=== PATIENT | male | born 1950 | race Hispanic/Latino ===

== ENCOUNTER 2019-08-09 16:16 | Inpatient (IN) | payer OTHER ==
[~2019-08-09] VITALS: Ht 152.4 cm; Wt 74.7 kg
[2019-08-09 16:58] LABS: BASOPHILS % (AUTO) 0.4 % (0.0-5.0); EOSINOPHILS % (AUTO) 2.7 % (0.0-8.0); HEMATOCRIT 27.1 % (42-54); LYMPHOCYTES % (AUTO) 22.4 % (21.0-51.0); MEAN CORPUSCULAR HEMOGLOBIN 30.5 pg (27.0-33.0); MEAN CORPUSCULAR HGB CONC 32.1 g/dL (32.0-36.0); MEAN CORPUSCULAR VOLUME 95.1 fL (79-99); MONOCYTES % (AUTO) 6.5 % (3.0-13.0); NEUTROPHILS % (AUTO) 67.7 % (40.0-77.0); PLATELET COUNT (AUTO) 154 K/uL (130-400); RED BLOOD CELL COUNT(AUTO) 2.85 MIL/uL (4.50-6.20); RED CELL DISTRIBUTION WIDTH 14.3 % (11.0-15.5); WHITE BLOOD COUNT (AUTO) 7.1 K/uL (4.8-10.8)
[2019-08-09 17:18] LABS: BILIRUBIN,TOTAL 0.3 mg/dL (0.2-1.0); POTASSIUM 5.8 mmol/L (3.5-5.1); TOTAL PROTEIN, SERUM 6.3 g/dL (6.0-8.3)
[2019-08-09 17:23] LABS: CREATININE 8.6 mg/dL (0.5-1.5)
[2019-08-09] MEDS ORDERED: HYDRALAZINE HCL 20 MG/ML VIAL ONE (17:44)
[2019-08-09] MEDS ORDERED: SODIUM POLYSTYRENE SULFONATE 15 GM/60 ML ML ONE (17:50)
[2019-08-09] MEDS ORDERED: SODIUM BICARB 50MEQ 50ML VIAL ONE (17:50)
[2019-08-09] MEDS ORDERED: INSULIN HUMULIN R 100 UNIT/ML 3ML ONE (17:51)
[2019-08-09] MEDS ORDERED: DEXTROSE 50%-WATER 50 ML DISP.SYRIN IV ONE (17:51)
[2019-08-09] MEDS ORDERED: CALCIUM GLUCONATE 1 GM/10 ML VIAL IV ONE (17:53)
[2019-08-09] MEDS ORDERED: SODIUM CHLORIDE 0.9% 100 ML IV ONE (17:58)
[2019-08-09] MEDS ORDERED: ALBUTEROL SULFATE 0.083% 2.5 MG/3 ML INH IH ONE (18:02)
[2019-08-09] MEDS ORDERED: ONDANSETRON ODT 4 MG TAB PO PRN (18:45)
[2019-08-09] MEDS ORDERED: ACETAMINOPHEN 325 MG TAB PO PRN (18:45)
[2019-08-09 19:46] LABS: INR 0.94 (0.85-1.15); PARTIAL THROMBOPLASTIN TIME 27.4 SEC (26.3-35.5); PROTHROMBIN TIME 10.2 SEC (9.6-11.6)
[2019-08-09 23:15] VITALS: BP 189/84
[2019-08-09] MEDS: SODIUM BICARBONATE 650 MG TAB PO SCH (23:15)
--- NOTE | 2019-08-09 23:15 | NUR ---
ADMISSION PT TRANSFERRED FROM ER INTO ROOM 321, AWAKE, ALERT AND VERBALLY RESPONSIVE. NO C/O PAIN OR DISCOMFORT AT THIS TIME. PATIENT ORIENTED TO ROOM, CALL CUNNINGHAM WITHIN REACH, BED IN LOWEST POSITION. Addendum: 08/10/19 at 0116 by PAUL ABEL RN Amended: Links added.
[2019-08-10 00:08] VITALS: BP 155/89
[2019-08-10] MEDS ORDERED: AMLO2.5T4 PO (02:13)
[2019-08-10] MEDS ORDERED: TAMS-1 PO (02:13)
[2019-08-10] MEDS ORDERED: ATOR10 PO (02:13)
[2019-08-10 04:08] VITALS: BP 172/73
[2019-08-10] MEDS ORDERED: INSU100I24 SQ (05:10)
--- NOTE | 2019-08-10 05:23 | NUR ---
ELEVATED BP PATIENT BLOOD PRESSURE THIS MORNING 172/73, HR 73, NO C/O PAIN OR DISCOMFORT AT THIS TIME. SPOKE TO DARLINE MOYA MADE AWARE OF PATIENT CURRENT BLOOD PRESSURE STATED, "PATIENT CAME INTO HOSPITAL WITH BP LIKE THAT I'M FINE WITH IT THAT HIGH, IF BECOMES HIGHER THAN SBP 190'S WE'LL WORRY ABOUT IT". NO NEW ORDERS GIVEN AT THIS TIME, WILL CONTINUE TO MONITOR PATIENT BP.
[2019-08-10 06:16] LABS: HEMATOCRIT 26.1 % (42-54); MEAN CORPUSCULAR HEMOGLOBIN 30.6 pg (27.0-33.0); MEAN CORPUSCULAR HGB CONC 32.6 g/dL (32.0-36.0); MEAN CORPUSCULAR VOLUME 93.9 fL (79-99); RED BLOOD CELL COUNT(AUTO) 2.78 MIL/uL (4.50-6.20); RED CELL DISTRIBUTION WIDTH 14.2 % (11.0-15.5); WHITE BLOOD COUNT (AUTO) 8.4 K/uL (4.8-10.8)
[2019-08-10 06:38] LABS: ALBUMIN 2.8 g/dL (3.5-5.0); BILIRUBIN,TOTAL 0.3 mg/dL (0.2-1.0); MAGNESIUM 2.6 mg/dL (1.80-2.40); PHOSPHORUS 6.5 mg/dL (2.5-4.9); POTASSIUM 4.1 mmol/L (3.5-5.1); TOTAL PROTEIN, SERUM 5.8 g/dL (6.0-8.3)
[2019-08-10 06:41] LABS: CREATININE 8.3 mg/dL (0.5-1.5)
[2019-08-10 08:00] VITALS: BP 176/83
[2019-08-10] MEDS: AMLODIPINE BESYLATE 2.5 MG TAB PO SCH (08:38)
[2019-08-10] MEDS: SODIUM BICARBONATE 650 MG TAB PO SCH ×3 (08:38→21:31)
[2019-08-10] MEDS: TAMSULOSIN HCL 0.4 MG CAP.ER.24H PO SCH (08:38)
[2019-08-10 09:57] LABS: APPEARANCE,URINE Clear (CLEAR); BILIRUBIN,URINE Negative (NEGATIVE); COLOR,URINE Yellow (YELLOW); GLUCOSE, URINE (UA) TRACE mg/dL (NEGATIVE); KETONES,URINE Negative (NEGATIVE); LEUKOCYTE ESTERASE ,URINE Negative (NEGATIVE); NITRATE,URINE Negative (NEGATIVE); OCCULT BLOOD,URINE Trace (NEGATIVE); PROTEIN,URINE 300 mg/dL (NEGATIVE); UROBILINOGEN,URINE 0.2 mg/dL (0.2-1.0)
[2019-08-10 10:13] LABS: BACTERIA,URINE Rare /HPF (None Seen); RBC,URINE 0-1 /HPF (0-1); SQUAMOUS EPITHELIAL CELL,UR Rare /HPF (0-2); WBC,URINE 0-1 /HPF (0-1)
[2019-08-10 11:49] VITALS: BP 195/80
--- NOTE | 2019-08-10 12:43 | NUR ---
CHART REVIEWED, ACF UPLOADED, TXT TO JEWELRY DESIGNER RE: RENAL CONSULT MISSING CONSULT FOR PUENTE Addendum: 08/10/19 at 1243 by GEN MCGOVERN RN CM Amended: Links added.
--- NOTE | 2019-08-10 12:46 | NUR ---
CHART REVIEWED, NOTED NEPHROLOGY CONSULT: [facility] WILL AWAIT NOTES / CM TO ASSIST IF HD STARTED
[2019-08-10 14:20] LABS: CREATININE,URINE RANDOM 55 mg/dL (30-135); POTASSIUM,URINE RANDOM 19 mmol/L (25-125); SODIUM,URINE RANDOM 97 mmol/l (40-220)
--- NOTE | 2019-08-10 14:41 | NUR ---
CALLED TO DR PUENTE OFFICE AND SPOKE WITH JONO ANSWERING SERVICE REGARDING F/U ON CONSULT .. PENDING CALL BACK FROM DR PUENTE
--- NOTE | 2019-08-10 15:43 | NUR ---
2ND PAGE OUT TO DR PUENTE . CALLED TO OFFICE AND SPOKE WITH MANNY REGARDING MD PLACED PATIENT NPO BUT NO PROVCEDURES ORDERED YET AND FOLLOWING UP .PENDING CALL BACK FROM DR PUENTE
[2019-08-10 16:00] VITALS: BP 189/88
--- NOTE | 2019-08-10 16:46 | NUR ---
CALL TO DR. HOLBROOK'S OFFICE FOR CORRECT CONTACT NUMBER (NUMBERS ON FACE SHEET NOT ACCURATE). CALL TO DAUGHTER SERENA, STATES PT AND SPOUSE LIVE WITH HER FAMILY AND HER BROTHERS FAMILY OFF AND ON. NUMBERS AND ADDRESSES UPDATED/FAXED TO REGISTRATION STATES USED TO BE INDEPENDENT WALKING, NOW NEEDS CANE AT ALL TIMES- VASILIY BELTRÁN PROVIDED ASSISTANCE WITH ADLS, NO STAIRS AT HOME, BUT DOES HAVE TROUBLE WITH THEM. STATES [facility] OR PTS SON OR PTS DAUGHTER WILL PROVIDE TRANSPORT IF NEEDED. JOE HAS HAD HD ON A TEMPORARY BASIS IN THE PAST, NUBIA HAS BEEN VIGILANT ABOUT DIET/MEDS/FLUIDS, BUT NOW HAVE BEEN TOLD HE NEEDS HD TO RE START. DCP IS HOME, WILL AWAIT MD RECOMMENDATIONS. ANTICIPATE HD SET UP ON THIS ADMIT Addendum: 08/10/19 at 1650 by GEN MCGOVERN RN CM Amended: Links added.
[2019-08-10] MEDS ORDERED: HYDRALAZINE HCL 20 MG/ML VIAL IV ONE (18:30)
[2019-08-10 19:00] VITALS: BP 141/64
[2019-08-10] MEDS: ATORVASTATIN CALCIUM 10 MG TABLET PO SCH (21:31)
[2019-08-10] MEDS ORDERED: ZOLPIDEM TARTRATE 5 MG TAB PO PRN (21:45)
[2019-08-10] MEDS ORDERED: MAG HYDROX/AL HYDROX/SIMETH ES 30 ML SUSP UDCUP PO PRN (21:45)
[2019-08-10] MEDS ORDERED: MORPHINE SULFATE 2 MG/ML 1ML SYG IV PRN (21:45)
[2019-08-10] MEDS ORDERED: LACTULOSE 20 GM/30 ML UDCUP PO PRN (21:45)
[2019-08-10] MEDS ORDERED: MECLIZINE HCL 25 MG TABLET PO PRN (21:45)
[2019-08-10] MEDS ORDERED: DIPHENHYDRAMINE HCL 25 MG CAPSULE PO PRN (21:45)
[2019-08-10] MEDS ORDERED: ACETAMINOPHEN 325 MG TAB PO PRN ×2 (21:45)
[2019-08-10] MEDS ORDERED: GUAIFENESIN-DM 200/20 MG 10 ML PO PRN (21:45)
[2019-08-10] MEDS ORDERED: NITROGLYCERIN 0.4 MG SL TAB SL PRN (21:45)
[2019-08-10] MEDS ORDERED: ONDANSETRON HCL 4 MG/2 ML VIAL IV PRN (21:45)
[2019-08-10] MEDS ORDERED: DiphenhydrAMINE HCL 50 MG/ML VIAL IV PRN (21:45)
[2019-08-11] VITALS (14 sets, daily range): BP systolic 129–198; BP diastolic 52–88
[2019-08-11 05:11] LABS: BASOPHILS % (AUTO) 0.6 % (0.0-5.0); EOSINOPHILS % (AUTO) 3.8 % (0.0-8.0); LYMPHOCYTES % (AUTO) 19.4 % (21.0-51.0); MEAN CORPUSCULAR HEMOGLOBIN 30.3 pg (27.0-33.0); MEAN CORPUSCULAR HGB CONC 31.9 g/dL (32.0-36.0); MEAN CORPUSCULAR VOLUME 94.9 fL (79-99); MONOCYTES % (AUTO) 6.1 % (3.0-13.0); NEUTROPHILS % (AUTO) 69.9 % (40.0-77.0); PLATELET COUNT (AUTO) 155 K/uL (130-400); RED BLOOD CELL COUNT(AUTO) 2.74 MIL/uL (4.50-6.20); RED CELL DISTRIBUTION WIDTH 14.6 % (11.0-15.5); WHITE BLOOD COUNT (AUTO) 6.3 K/uL (4.8-10.8)
[2019-08-11 05:18] LABS: HEMOGLOBIN A1C 7.1 % (4.0-6.0)
[2019-08-11 05:36] LABS: ALBUMIN 2.7 g/dL (3.5-5.0); BILIRUBIN,TOTAL 0.2 mg/dL (0.2-1.0); PHOSPHORUS 6.4 mg/dL (2.5-4.9); POTASSIUM 4.3 mmol/L (3.5-5.1); TOTAL PROTEIN, SERUM 5.8 g/dL (6.0-8.3)
[2019-08-11 05:39] LABS: B-TYPE NATRIURETIC PEPTIDE 1090 pg/mL (0-100)
[2019-08-11 05:40] LABS: CREATININE 8.4 mg/dL (0.5-1.5)
[2019-08-11 05:48] LABS: % IRON SATURATION 29.4 % (30-44)
[2019-08-11] MEDS: AMLODIPINE BESYLATE 2.5 MG TAB PO SCH (09:00)
[2019-08-11] MEDS: SODIUM BICARBONATE 650 MG TAB PO SCH ×3 (09:00→20:26)
[2019-08-11] MEDS: TAMSULOSIN HCL 0.4 MG CAP.ER.24H PO SCH (09:00)
[2019-08-11] MEDS: ENOXAPARIN SODIUM 30 MG/0.3 ML SQ SCH (09:00)
[2019-08-11] MEDS: FUROSEMIDE 10 MG/ML 2ML VIAL IV SCH ×2 (09:00→20:26)
[2019-08-11] MEDS: HYDRALAZINE HCL 20 MG/ML VIAL IV PRN ×2 (11:53→20:26)
[2019-08-11] MEDS ORDERED: LIDOCAINE HCL 1% MDV 50ML VIAL ONE (12:06)
--- NOTE | 2019-08-11 13:49 | NUR ---
CM Note: [facility] pending approval and chair time WENDIE signed by pt for [facility], filed in chart. CM faxed order, clinicals to [facility] Intake, confirmation received. Pending to fax lab result and dialysis #1,2,3. Will fax as soon as available. Pt pending approval and chair time. Primary nurse aware. CM to cont to follow up.
--- NOTE | 2019-08-11 15:11 | NUR ---
1011 patient signed Amharic IM Letter. I faxed IM Letter to [phone] and placed in chart under consent tab.
--- NOTE | 2019-08-11 16:48 | NUR ---
BRIDGETT CARABALLO CALLED SAID NO OPENINGS IN [place]. CLOSEST CLINIC WOULD BE [facility]. DR. PUENTE DOES NOT APPEAR ON EITHER OF THOSE CLINICS. NEED TO ASK HIM IF OKAY TO CHANGE ACCEPTING MD. Addendum: 08/11/19 at 1649 by CJ BLUNT RN CM Amended: Links added.
--- NOTE | 2019-08-11 18:20 | NUR ---
HD OUTPATIENT PLACEMENT DR LIN IS COMMUNICATIONS COORDINATOR TODAY. I INFORMED HIM THAT THERE IS NO CHAIR AVAILABLE IN [facility], PATIENT COULD GO TO [place] OR [facility]. DR LIN STATED THAT HE WANTS PROFESSOR OF FINANCE TO CALL HIM TOMORROW BECAUSE DR PUENTE'S PARTNER, MARITA MICHELLE, MAY BE ABLE TO TAKE THE PATIENT IN [place]. HD STILL PENDING TO SET UP.
[2019-08-11] MEDS: ATORVASTATIN CALCIUM 10 MG TABLET PO SCH (20:26)
--- NOTE | 2019-08-11 20:26 | NUR ---
B/P B/P 182/66, ASYMPTOMATIC , NO SOB, NO C/O PAIN AT THIS TIME, HYDRALAZINE 10 MG IVP GIVEN SLOWLY
--- NOTE | 2019-08-11 21:20 | NUR ---
MED EFFECT B/P 133/65, NAD, CALL C[place]AM AT REACH
[2019-08-12 03:29] VITALS: BP 141/78
[2019-08-12 05:45] LABS: HEMATOCRIT 26.6 % (42-54); MEAN CORPUSCULAR HEMOGLOBIN 30.5 pg (27.0-33.0); MEAN CORPUSCULAR HGB CONC 32.7 g/dL (32.0-36.0); MEAN CORPUSCULAR VOLUME 93.3 fL (79-99); RED BLOOD CELL COUNT(AUTO) 2.85 MIL/uL (4.50-6.20); RED CELL DISTRIBUTION WIDTH 14.1 % (11.0-15.5); WHITE BLOOD COUNT (AUTO) 7.1 K/uL (4.8-10.8)
[2019-08-12 06:06] LABS: CREATININE 6.4 mg/dL (0.5-1.5); POTASSIUM 3.8 mmol/L (3.5-5.1)
[2019-08-12 07:44] VITALS: BP 155/87
[2019-08-12] MEDS: AMLODIPINE BESYLATE 2.5 MG TAB PO SCH (08:32)
[2019-08-12] MEDS: TAMSULOSIN HCL 0.4 MG CAP.ER.24H PO SCH (08:32)
[2019-08-12] MEDS: SODIUM BICARBONATE 650 MG TAB PO SCH ×3 (08:32→21:41)
[2019-08-12] MEDS: FUROSEMIDE 10 MG/ML 2ML VIAL IV SCH (08:32)
[2019-08-12] MEDS: ENOXAPARIN SODIUM 30 MG/0.3 ML SQ SCH (08:33)
--- NOTE | 2019-08-12 09:50 | NUR ---
PAGED DR PUENTE, WAITING FUNNEL COATER BACK.
[2019-08-12 11:31] VITALS: BP 165/78
--- NOTE | 2019-08-12 13:07 | NUR ---
PAGED DR PUENTE AGAIN. WAITING FISHER DIVING BACK SINCE THIS MORNING.
[2019-08-12 13:11] LABS: HEPATITIS Bs ANTIGEN SCREEN P Negative (Negative)
[2019-08-12] MEDS ORDERED: GLUCAGON 1MG KIT 1 MG ML IM PRN (13:15)
[2019-08-12] MEDS ORDERED: DEXTROSE 50%-WATER 50 ML DISP.SYRIN IV PRN (13:15)
--- NOTE | 2019-08-12 15:55 | NUR ---
DC PLAN RECEIVED ORDER TO CALL DR. PUENTE. CALLED MD GAVE UPDATE. NO ROOM IN [facility]. GOING TO BE SEEN IN [place]. PATIENT OKAY WITH CHANGE. DR. PUENTE OKAY WITH CHANGE. SAID PARTNER DR. MICHELLE CAN SEE PATIENT AT [facility]. Addendum: 08/12/19 at 1556 by CJ BLUNT RN CM Amended: Links added.
[2019-08-12 16:36] VITALS: BP 170/78
--- NOTE | 2019-08-12 16:36 | NUR ---
RD NOTIFICATION Pt admitted with Acute on Chronic Renal Failure. Pt tolerating Dialysis, 75gm CC diet order with no report of GI distress, Good PO intake at 100%. BOUBACAR provided Nutrition education via Ivorian translation. Recommend continue current diet order. RD to continue to you monitor. Please notify as additional nutrition concerns arise. Thank you. Addendum: 08/12/19 at [address] Amended: Links added.
--- NOTE | 2019-08-12 16:39 | NUR ---
NUTRITION EDUCATION BOUBACAR provided Renal Dialysis and Diabetes Nutrition education via Serbian Translation. BOUBACAR reviewed reference materials with Pt. Pt was cooperative and attentive. Pt verbalized understanding. Addendum: 08/12/19 at [address] Amended: Links added.
[2019-08-12] MEDS: INSULIN HUMULIN R 100 UNIT/ML 3ML SQ SCH ×2 (16:56→21:00)
[2019-08-12 19:14] VITALS: BP 159/74
[2019-08-12] MEDS: ATORVASTATIN CALCIUM 10 MG TABLET PO SCH (21:41)
[2019-08-12 23:10] VITALS: BP 183/51
[2019-08-13 04:00] VITALS: BP 157/60
[2019-08-13] MEDS: INSULIN HUMULIN R 100 UNIT/ML 3ML SQ SCH ×4 (06:48→20:29)
[2019-08-13 08:00] VITALS: BP 168/68
[2019-08-13] MEDS: AMLODIPINE BESYLATE 5 MG TAB PO SCH (08:37)
[2019-08-13] MEDS: SODIUM BICARBONATE 650 MG TAB PO SCH ×3 (08:37→20:30)
[2019-08-13] MEDS: TAMSULOSIN HCL 0.4 MG CAP.ER.24H PO SCH (08:37)
[2019-08-13] MEDS: ENOXAPARIN SODIUM 30 MG/0.3 ML SQ SCH (08:38)
--- NOTE | 2019-08-13 10:48 | NUR ---
DC PLAN SENT UPDATES TO [facility] INCLUDING LAST DIALYSIS TREATMENT. YESTERDAY IT WAS PLACED ON HOLD 08/11. Addendum: 08/13/19 at 1049 by CJ BLUNT RN CM Amended: Links added.
[2019-08-13 11:00] VITALS: BP 175/80
[2019-08-13] MEDS: HYDRALAZINE HCL 10 MG TABLET PO SCH ×2 (14:00→20:30)
[2019-08-13] MEDS ORDERED: LIDOCAINE HCL-MPF 1% 2ML VIAL IJ PRN (15:00)
[2019-08-13] MEDS ORDERED: ACETAMINOPHEN 325 MG TAB PO PRN (15:00)
[2019-08-13] MEDS ORDERED: HEPARIN SODIUM 5000UNIT/ML 1ML VIAL IJ PRN ×2 (15:00)
[2019-08-13] MEDS ORDERED: SODIUM CHLORIDE 0.9% 1000ML 1,000 ML IV PRN (15:00)
[2019-08-13] MEDS ORDERED: NITROGLYCERIN 0.4 MG SL TAB SL PRN (15:00)
[2019-08-13] MEDS ORDERED: 0.9% SODIUM CHLORIDE 1000 ML IV BAG IV PRN (15:00)
--- NOTE | 2019-08-13 15:44 | NUR ---
BRIDGETT NESS CALLED [facility] SAID THE CASE ASSIGNED PERSON IS OUT TODAY. SAID THEY WILL LEAVE A MESSAGE FOR A DONOR PROCESSOR TO CALL ME BACK. STILL PENDING CHAIR TIME. COVID FORM SIGNED IN CHART. Addendum: 08/13/19 at 1547 by CJ BLUNT RN CM Amended: Links added.
[2019-08-13 16:00] VITALS: BP 142/73
[2019-08-13 19:39] VITALS: BP 166/71
[2019-08-13] MEDS: ATORVASTATIN CALCIUM 10 MG TABLET PO SCH (20:30)
[2019-08-13 23:53] VITALS: BP 158/78
[2019-08-14 04:00] VITALS: BP 154/82
[2019-08-14 06:30] LABS: CREATININE 4.6 mg/dL (0.5-1.5); MAGNESIUM 1.7 mg/dL (1.80-2.40); POTASSIUM 3.5 mmol/L (3.5-5.1)
[2019-08-14] MEDS: INSULIN HUMULIN R 100 UNIT/ML 3ML SQ SCH ×3 (06:33→16:49)
[2019-08-14 08:00] VITALS: BP 166/76
[2019-08-14] MEDS: SODIUM BICARBONATE 650 MG TAB PO SCH ×3 (09:15→20:18)
[2019-08-14] MEDS: TAMSULOSIN HCL 0.4 MG CAP.ER.24H PO SCH (09:15)
[2019-08-14] MEDS: HYDRALAZINE HCL 10 MG TABLET PO SCH ×3 (09:16→20:18)
[2019-08-14] MEDS: AMLODIPINE BESYLATE 5 MG TAB PO SCH (09:16)
[2019-08-14] MEDS: ENOXAPARIN SODIUM 30 MG/0.3 ML SQ SCH (09:16)
--- NOTE | 2019-08-14 10:00 | NUR ---
cm note received call by daughter christine [phone] and updated on dialysis chair is still pending. call was made to [facility] main line and still no approval discussed process with daughter and verbalizes understanding.
[2019-08-14 11:00] VITALS: BP 170/79
[2019-08-14 16:00] VITALS: BP 145/73
[2019-08-14 20:00] VITALS: BP 139/70
[2019-08-14] MEDS: ATORVASTATIN CALCIUM 10 MG TABLET PO SCH (20:18)
--- NOTE | 2019-08-14 22:25 | NUR ---
NOTE 2205 RECEIVED CALL FROM PATIENT'S DAUGHTER. EXPRESSING CONCERNS ABOUT WHAT IS TAKING SO LONG FOR HER FATHER TO GET DISCHARGED. LISTENED TO HER CONCERNS ADDRESSED HER QUESTIONS, BUT SHE WAS NOT SATISFIED DUE TO CONFLICTING INFORMATION SHE SAYS SHE HAS BEEN RECEIVING. THE LATEST INFORMATION AVAILABLE TO ME AND IS WHAT I TOLD HER PER SHIFT REPORT (LASER SYSTEMS ENGINEER SAUL TODAY SPOKE WITH DAUGHTER ABOUT NOT HAVING SERCURED A DIALYSIS CHAIR YET. PENDING TO HEAR FROM DIALYSIS FACILITY. THAT IT WILL PROBABLY BE ON FRIDAY SINCE FRIDAY IS A HOLIDAY). DAUGHTER INQUIRED ABOUT WHAT WHEELMAN SHE COULD SPEAK TO TO IN THIS REGARDS. REFERRED DAUGHTER TO LASER SYSTEMS ENGINEER WHEELMAN. SAYS SHE WILL CALL TOMORROW AND ASK TO HER. 2224 SPOKE WITH GLASS MECHANIC REGARDING THIS PHONECALL AND DAUGHTERS CONCERNS. SAYS SHE WILL PASS IT ON TO LASER SYSTEMS ENGINEER WHEELMAN IF SHE HAS CONTACT WITH [facility]. IF NOT, THEN FOR DAUGHTER TO SPEAK TO LASER SYSTEMS ENGINEER TOMORROW AND ARRANGE IT.
[2019-08-15] VITALS: BP 139/49
[2019-08-15 04:00] VITALS: BP 146/57
[2019-08-15] MEDS: INSULIN HUMULIN R 100 UNIT/ML 3ML SQ SCH ×4 (05:53→20:52)
[2019-08-15 06:13] LABS: BASOPHILS % (AUTO) 0.5 % (0.0-5.0); HEMATOCRIT 25.6 % (42-54); LYMPHOCYTES % (AUTO) 25.5 % (21.0-51.0); MEAN CORPUSCULAR HEMOGLOBIN 30.2 pg (27.0-33.0); MEAN CORPUSCULAR HGB CONC 33.6 g/dL (32.0-36.0); MEAN CORPUSCULAR VOLUME 89.8 fL (79-99); MONOCYTES % (AUTO) 7.2 % (3.0-13.0); NEUTROPHILS % (AUTO) 62.6 % (40.0-77.0); PLATELET COUNT (AUTO) 157 K/uL (130-400); RED BLOOD CELL COUNT(AUTO) 2.85 MIL/uL (4.50-6.20); RED CELL DISTRIBUTION WIDTH 13.5 % (11.0-15.5); WHITE BLOOD COUNT (AUTO) 8.1 K/uL (4.8-10.8)
[2019-08-15 06:34] LABS: CREATININE 5.5 mg/dL (0.5-1.5); MAGNESIUM 1.7 mg/dL (1.80-2.40); POTASSIUM 3.5 mmol/L (3.5-5.1)
[2019-08-15 08:00] VITALS: BP 162/71
--- NOTE | 2019-08-15 08:36 | NUR ---
NOTE SPOKE WITH GENERAL CLAIMS AGENT SAUL REGARDING CONVERSATION WITH PATIENT'S DAUGHTER AND HER CONCERNS THAT I HAD LAST NIGHT. MADE AWARE THAT SHE ALSO WANTED TO SPEAK TO HER CLINICAL BUSINESS MANAGER.
[2019-08-15] MEDS: HYDRALAZINE HCL 10 MG TABLET PO SCH ×3 (09:16→20:52)
[2019-08-15] MEDS: TAMSULOSIN HCL 0.4 MG CAP.ER.24H PO SCH (09:16)
[2019-08-15] MEDS: SODIUM BICARBONATE 650 MG TAB PO SCH ×3 (09:16→20:52)
[2019-08-15] MEDS: AMLODIPINE BESYLATE 5 MG TAB PO SCH (09:16)
[2019-08-15] MEDS: ENOXAPARIN SODIUM 30 MG/0.3 ML SQ SCH (09:17)
[2019-08-15 11:00] VITALS: BP 146/67
[2019-08-15] MEDS ORDERED: FUROSEMIDE 10 MG/ML 4ML VIAL IV SCH (11:00)
--- NOTE | 2019-08-15 11:00 | NUR ---
cm note met with patient and also updated daughter on status on dialysis chair that it is still pending. call was made to [facility] main line [phone] and left voicemail due to office is closed and no approval yet. discussed process with daughter and with patient verbalizes understanding.
--- NOTE | 2019-08-15 13:45 | NUR ---
MD ROUNDS DR. PUENTE ROUNDED AND SPOKE TO PATIENT REGARDING DISCHARGE TODAY. PER DR. PUENTE, PATIENT WAS GIVEN A DIALYSIS CHAIR AT [facility] IN [place] SINCE FRIDAY. PATIENT TO ATTEND FRI-FRI-FRI BUT DOES NOT KNOW THE TIME THAT WAS ARRANGED. I MENTIONED TO DR. PUENTE THAT CASE MANAGEMENT HAS NOT RECEIVED CLARIFICATION OF CHAIR AVAILABILITY AT THIS TIME. DR. PUENTE STATED CASE MANAGEMENT NEEDS TO FOLLOW UP WITH DIALYSIS CENTER SOON POSSIBLE TO CLARIFY THE ORDERS THAT WERE GIVEN ON FRIDAY. I SPOKE TO ELIANE HUGHES (CM) STATED WILL CALL JUDY RUBIO RN TO DISCUSS THE CASE AND NOTIFY ME OF ANY NEW INFORMATION.
--- NOTE | 2019-08-15 14:00 | NUR ---
cm note updated by nurse that dr valdes here and asked regarding chair time, i called to [facility] main line [phone] and left 2 different messages for a callback due to office closed. spoke to troy evans cm director, and able to look up on [facility] portal , but still no approval of chair time for pt on portal. faxed clinical information and uploaded on portal. but pt is still pending last Hemodilaysis treatment. per nurse tommy plan is for dialysis friday. updated Tyesha Fox, with [facility] informed primary nurse will continue to followup tomorrow for update. verbalizes understanding. Addendum: 08/15/19 at 1924 by CJ RODRIGUEZ call also made to alternate line [facility] [phone] to followup on chairtime. however, offices closed, and did leave a message for callback.
[2019-08-15 16:00] VITALS: BP 142/60
[2019-08-15 20:00] VITALS: BP 146/52
[2019-08-15] MEDS: ATORVASTATIN CALCIUM 10 MG TABLET PO SCH (20:52)
[2019-08-16 00:08] VITALS: BP 143/62
[2019-08-16 04:08] VITALS: BP 162/69
[2019-08-16 05:32] LABS: CREATININE 6.2 mg/dL (0.5-1.5); MAGNESIUM 1.8 mg/dL (1.80-2.40); POTASSIUM 3.5 mmol/L (3.5-5.1)
[2019-08-16] MEDS: INSULIN HUMULIN R 100 UNIT/ML 3ML SQ SCH ×2 (06:31→11:19)
--- NOTE | 2019-08-16 07:00 | NUR ---
NOTE 0548 PAGED [facility] CONTRACT RECRUITER VIA ANSWERING SERVICE TO NOTIFY OF LABS TODAY SODIUM LEVEL 125 AND CHLORIDE 90. 0638 CONTACTED ANSWERING SERVICE. SAID WILL PAGE FAB ROGERS AGAIN. 0700 REPORT GIVEN TO TIANA LOPEZ ON PENDING CALLBACK TO REPORT LAB RESULTS.
[2019-08-16 08:12] VITALS: BP 173/75
[2019-08-16] MEDS: SODIUM BICARBONATE 650 MG TAB PO SCH ×2 (08:33→13:27)
[2019-08-16] MEDS: HYDRALAZINE HCL 10 MG TABLET PO SCH ×2 (08:33→13:28)
[2019-08-16] MEDS: TAMSULOSIN HCL 0.4 MG CAP.ER.24H PO SCH (08:33)
[2019-08-16] MEDS: AMLODIPINE BESYLATE 5 MG TAB PO SCH (08:33)
[2019-08-16] MEDS: ENOXAPARIN SODIUM 30 MG/0.3 ML SQ SCH (08:34)
--- NOTE | 2019-08-16 10:54 | NUR ---
BRIDGETT CARABALLO CALLED SAID PATIENT ACCEPTED. TTS 830 AM AT [facility]. FIRST TREATMENT IS AUGUST 17, 2019 AT 830. GAVE LETTER TO PATIENT. LET NURSE KNOW OF ACCEPTANCE. Addendum: 08/16/19 at 1102 by CJ BLUNT RN CM Amended: Links added.
[2019-08-16 11:35] VITALS: BP 140/65
--- NOTE | 2019-08-16 15:20 | NUR ---
INSTRUCTIONS DISCHARGE INSTRUCTIONS GIVEN TO PATIENT AT BEDSIDE AND TO SPOUSE, [facility] VIA TELEPHONE. NO QUESTIONS OR CONCERNS VOICED. PATIENT HAS BEEN SET UP FOR DIALYSIS T-T-S IN [place]. NO NEW PRESCRIPTIONS GIVEN. MD AT DIALYSIS CENTER WILL TAKE OVER ORDERS FOR DIALYSIS. IV HAS BEEN REMOVED WITH TIP INTACT. DIRECT PRESSURE APPLIED UNTIL BLEEDING CONTROLLED THEN SITE COVERED WITH GAUZE AND SECURED WITH TAPE. PENDING RIDE HOME.
[2019-08-17] MEDS ORDERED: SODIUM CHLORIDE 1,000 MG TAB PO SCH (09:00)
== END 2019-08-16 17:00 | disposition home or self-care (01) | DRG 682 ==
LOC: EDH 16:16 → EDHIP 18:18 → OBSVTOIN 18:18 → 3DH 22:20
PROVIDERS: ADMIT Internal Medicine Critical Care Medicine; ATTEND Internal Medicine Critical Care Medicine
PROC: 5A1D70Z Performance of Urinary Filtration, Intermittent, Less than 6 Hours Per Day (ICD-10-PCS; principal; 2019-08-11)
PROC: 02HV33Z Insertion of Infusion Device into Superior Vena Cava, Percutaneous Approach (ICD-10-PCS; 2019-08-11)
PROC: B548ZZA Ultrasonography of Superior Vena Cava, Guidance (ICD-10-PCS; 2019-08-11)
PROC: 5A1D70Z Performance of Urinary Filtration, Intermittent, Less than 6 Hours Per Day (ICD-10-PCS; 2019-08-13)
PROC: 5A1D70Z Performance of Urinary Filtration, Intermittent, Less than 6 Hours Per Day (ICD-10-PCS; 2019-08-16)
DX: I12.0 Hypertensive chronic kidney disease with stage 5 chronic kidney disease or end stage renal disease (principal); N18.6 End stage renal disease; N17.9 Acute kidney failure, unspecified; E87.1 Hypo-osmolality and hyponatremia; E44.1 Mild protein-calorie malnutrition; E11.22 Type 2 diabetes mellitus with diabetic chronic kidney disease; N40.0 Benign prostatic hyperplasia without lower urinary tract symptoms; D63.1 Anemia in chronic kidney disease; E11.51 Type 2 diabetes mellitus with diabetic peripheral angiopathy without gangrene; E78.5 Hyperlipidemia, unspecified; I25.10 Atherosclerotic heart disease of native coronary artery without angina pectoris; I25.5 Ischemic cardiomyopathy; Z95.1 Presence of aortocoronary bypass graft; Z68.32 Body mass index [BMI] 32.0-32.9, adult
CPT/HCPCS: 36415; 36558; 70450; 71045; 76770; 77001; 80048; 80053; 80061; 81001; 82550; 82570; 82728; 82948; 83036; 83540; 83550; 83735; 83880; 84100; 84133; 84300; 84484; 85025; 85027; 85610; 85730; 86701; 86704; 86706; 87077; 87088; 87186; 87340; 87390; 87493; 87520; 90935; 93005; 93306; 93356; 94640; C1750; G0378; J0360; J0610; J1644; J1650; J1815; J1940; J3490; J7070

== ENCOUNTER 2019-08-22 13:41 | Inpatient (IN) | payer OTHER ==
[~2019-08-22] VITALS: Ht 165.1 cm; Wt 85.2 kg
[~2019-08-22 13:41] MED LIST: AMLO2.5T4 PO; ATOR10 PO; INSU100I24 SQ; TAMS-1 PO
[2019-08-22] MEDS ORDERED: ONDANSETRON HCL 4 MG/2 ML VIAL IVP PRN (15:30)
[2019-08-22] MEDS ORDERED: IPRATROPIUM/ALBUTEROL SULFATE 3 ML SOLUTION IH PRN (15:30)
[2019-08-22] MEDS ORDERED: VANCOMYCIN PROTOCOL PER PHARMACY IV SCH (15:30)
[2019-08-22] MEDS ORDERED: HYDRALAZINE HCL 20 MG/ML VIAL IV PRN (15:30)
[2019-08-22] MEDS ORDERED: ZOLPIDEM TARTRATE 5 MG TAB PO PRN (15:30)
[2019-08-22] MEDS ORDERED: ACETAMINOPHEN 325 MG TAB PO PRN (15:30)
[2019-08-22 15:42] LABS: HEMATOCRIT 23.1 % (42-54); MEAN CORPUSCULAR HGB CONC 32.5 g/dL (32.0-36.0); MEAN CORPUSCULAR VOLUME 92.4 fL (79-99); RED BLOOD CELL COUNT(AUTO) 2.5 MIL/uL (4.50-6.20); RED CELL DISTRIBUTION WIDTH 13.4 % (11.0-15.5); WHITE BLOOD COUNT (AUTO) 6.1 K/uL (4.8-10.8)
[2019-08-22 15:51] LABS: CREATININE 5.5 mg/dL (0.5-1.5); POTASSIUM 4.1 mmol/L (3.5-5.1)
[2019-08-22 15:54] LABS: INR 0.99 (0.85-1.15); PARTIAL THROMBOPLASTIN TIME 28.8 SEC (26.3-35.5); PROTHROMBIN TIME 10.7 SEC (9.6-11.6)
[2019-08-22] MEDS ORDERED: PHARMACY COMMUNICATION MISC SCH (16:15)
[2019-08-22] MEDS ORDERED: GLUCAGON 1MG KIT 1 MG ML IM PRN (16:45)
[2019-08-22] MEDS: ZOSYN 3.375GM+NS 50ML 50 ML IV SCH (16:57)
[2019-08-22 16:59] VITALS: BP 128/74
[2019-08-22] MEDS ORDERED: VANCOMYCIN 750MG + NS 250 ML IV SCH ×2 (18:00)
[2019-08-22] MEDS ORDERED: COMPOUND IV REFRIGERATED 1 EACH IVSOLN MISC PRN (18:15)
[2019-08-22] MEDS: VANCOMYCIN 1.25 GM in SODIUM CHLORIDE 0.9% 250 ML IV SCH (20:00)
[2019-08-22 20:39] VITALS: BP 164/74
[2019-08-22] MEDS: ATORVASTATIN CALCIUM 10 MG TABLET PO SCH (21:00)
[2019-08-22] MEDS: INSULIN HUMULIN R 100 UNIT/ML 3ML SQ SCH (21:00)
[2019-08-23] VITALS (7 sets, daily range): BP systolic 127–162; BP diastolic 56–78
[2019-08-23] MEDS: ZOSYN 3.375GM+NS 50ML 50 ML IV SCH ×2 (03:30→15:50)
[2019-08-23] MEDS: DEXTROSE 50%-WATER 50 ML DISP.SYRIN IV PRN (05:40)
--- NOTE | 2019-08-23 05:40 | NUR ---
LOW BLOOD SUGAR PT'S FINGER STICK AT 40. PT ASYMPTOMATIC BUT ALSO NPO. MEDICATED WITH D50 1AMP. WILL RECHECK PT'S BLOOD SUGAR.
--- NOTE | 2019-08-23 06:00 | NUR ---
PT FINGER STICK BACK TO 133. LOW DISTRESS NOTED.
[2019-08-23] MEDS: INSULIN HUMULIN R 100 UNIT/ML 3ML SQ SCH ×3 (07:30→21:00)
[2019-08-23] MEDS: PANTOPRAZOLE SODIUM 40 MG TABLET.DR PO SCH (08:00)
[2019-08-23] MEDS: TAMSULOSIN HCL 0.4 MG CAP.ER.24H PO SCH (08:00)
[2019-08-23] MEDS: AMLODIPINE BESYLATE 2.5 MG TAB PO SCH (08:00)
[2019-08-23 08:02] LABS: HEMATOCRIT 23.3 % (42-54); MEAN CORPUSCULAR HGB CONC 32.2 g/dL (32.0-36.0); MEAN CORPUSCULAR VOLUME 93.2 fL (79-99); RED BLOOD CELL COUNT(AUTO) 2.5 MIL/uL (4.50-6.20); RED CELL DISTRIBUTION WIDTH 13.3 % (11.0-15.5); WHITE BLOOD COUNT (AUTO) 6.4 K/uL (4.8-10.8)
[2019-08-23 08:21] LABS: CREATININE 6.2 mg/dL (0.5-1.5); POTASSIUM 4.4 mmol/L (3.5-5.1)
--- NOTE | 2019-08-23 09:53 | NUR ---
SPOKE TO THE SURFACE SUPERVISOR NURSE MASSIEL ABOUT THE PERMACATH PLACEMENT SHE VERBALIZED THAT DR. DUMONT RECOMMENDED TO HAVE THE DIALYSIS FIRST BEFORE THEY TAKE OUT THE PERMACATH AND WAIT 1 TO 2 DAYS BEFORE THEY PUT THE EDIN. VERBALIZED TO HER THAT ISN'T IT THE OTHER WAY AROUND WHICH IS TAKE THE PERMACATH AND NOT USE IT FOR DIAYLSIS. HOWEVER, THEY WILL FOLLOW THE RECOMMENDATION OF DR. DUMONT. SO I VERBALIZED THAT I WILL PAGE DR. PUENTE. I PROCEED TO PAGE DR. PUENTE AND WILL WAIT FOR HIS CALL BACK.
--- NOTE | 2019-08-23 10:23 | NUR ---
SPOKE TO ROSALBA DOUGLAS OF [facility] ABOUT THE RECOMMENDATION OF DR. DUMONT AND TOLD HER THAT I ALREADY PAGED DR. PUENTE NO CALLBACK. SHE VERBALIZED TO PROCEED WITH THE DIALYSIS SINCE THE PATIENT ALREADY HAVE ANTIBIOTIC. WE DIALYSIS WILL BE DONE ON HIM. WILL CALL THE [facility]
--- NOTE | 2019-08-23 10:45 | NUR ---
DCP: HOME Sw met with pt who reports he lives in [facility] with [address] and daughter Mikel Peña [phone]. Pt states he is independent with ADLS, uses cane and goes to [facility] for dialysis treatments on TTS at 12:30, family transports. PCP is Dr Gilmore and Dana for rx. Pt denies dc needs and plan is home Addendum: 08/23/19 at 1047 by RACHNA VALDOVINOS SS Amended: Links added.
[2019-08-23] MEDS ORDERED: LIDOCAINE HCL 1% MDV 50ML VIAL ONE (15:14)
[2019-08-23] MEDS: ATORVASTATIN CALCIUM 10 MG TABLET PO SCH (21:13)
[2019-08-23] MEDS: ACETAMINOPHEN-CODEINE 300/30MG TAB PO PRN (21:15)
--- NOTE | 2019-08-23 22:00 | NUR ---
NOTE 2014 PATIENT REPORTS FEELING COLD AND NOT ABLE TO WARM UP EVEN WITH 3-4 BLANKETS ON HIM. ROOM IS WARM AND HIS SKIN FEELS WARM. TEMP 98.6. HE ALSO SAYS HE STARTED FEELING CHEST PAINS. HIS VS 127/61 HR 87 RR 20 O2 SAT 99%. 2017 CONTACTED ANSWERING SERVICE FOR [facility] TO NOTIFY. 2019 SPOKE WITH DARLINE MOYA NP AND INFORMED OF ABOVE ALONG WITH BRIEF HISTORY OF PATIENT. ORDERS RECEIVED FOR EKG NOW AND TROPONIN NOW AND IN 6 HRS. INFORMED PATIENT OF NEW ORDERS. 2114 MEDICATED PATIENT WITH TYLENOL #3 AND AMBIEN ( REQUESTED FOR SLEEP). 2199 PATIENT REPORTS THAT CHEST PAIN IS RELIEVED AND ALSO SENSATION OF COLD.
[2019-08-24] MEDS: ZOSYN 3.375GM+NS 50ML 50 ML IV SCH (02:53)
[2019-08-24 03:50] VITALS: BP 149/79
[2019-08-24 07:30] VITALS: BP 159/59
[2019-08-24] MEDS: INSULIN HUMULIN R 100 UNIT/ML 3ML SQ SCH ×4 (07:30→20:07)
[2019-08-24] MEDS: PANTOPRAZOLE SODIUM 40 MG TABLET.DR PO SCH (09:00)
[2019-08-24] MEDS: TAMSULOSIN HCL 0.4 MG CAP.ER.24H PO SCH (09:00)
[2019-08-24] MEDS: AMLODIPINE BESYLATE 2.5 MG TAB PO SCH (09:00)
--- NOTE | 2019-08-24 10:28 | NUR ---
REPORTED TO SVETLANA MARTIN THE RESULT FOR BLOOD CULTURE OF GRAM + COCCI IN GRAM STAIN. NO ORDER WAS GIVEN.
--- NOTE | 2019-08-24 11:13 | NUR ---
dr. owen notified that the xuan will not be placement and will be hold as long as possible.
[2019-08-24 11:30] VITALS: BP 146/93
--- NOTE | 2019-08-24 13:26 | NUR ---
call dr. valdes and notified him the recommendation of dr. jones to hold the xuan placement as long as possible. told him that he will not have dialysis and he is agreeable with this.
[2019-08-24 16:00] VITALS: BP 162/61
--- NOTE | 2019-08-24 17:23 | NUR ---
DISCUSSED CASE W CM DIRECTOR LILY- PLAN FOR DISCHARGE PRESUMED TO BE TO GET ABX AT HD CENTER UNTIL CLEARED, THEN COME BACK FOR PERMACAHT OUT PATIENT. SOON CULTURES FINAL WILL EXPECT TO DISCHARGE.
[2019-08-24 20:00] VITALS: BP 171/75
[2019-08-24] MEDS: VANCOMYCIN 1.25 GM in SODIUM CHLORIDE 0.9% 250 ML IV SCH (20:15)
[2019-08-24] MEDS: ATORVASTATIN CALCIUM 10 MG TABLET PO SCH (20:15)
--- NOTE | 2019-08-24 20:15 | NUR ---
MEDS SHIFT ASSESSMENT DONE, PLEASE REFER TO CHART. PT CLAIMS OF CHEST PAINS. NOTED BP ELEVATED AT 171/75. DUE MEDS ADMINISTERED, TYLENOL #3 1 TAB PO GIVEN FOR PAINS. HYDRALAZINE IV GIVEN FOR ELEVATED BP. WILL RE-ASSESS PT. Addendum: 08/25/19 at 0105 by JUAN MIGUEL PAUL RN RN Amended: Links added.
[2019-08-24] MEDS: ACETAMINOPHEN-CODEINE 300/30MG TAB PO PRN (20:16)
--- NOTE | 2019-08-24 20:58 | NUR ---
PAGED RE-ASSESSED PT'S JW=032/80 AND STILL CLAIMS OF CP. PAGED ROB GREGORIO OIL FIELD TECHNICIAN FOR [facility], VIA ANSWERING SERVICE. PRESS BOX CUSTODIAN CALLED BACK AND REFERRED PT COMPLAINTS OF CP AND ELEVATED BP. NEW ORDERS GIVEN, PLEASE REFER TO CPOE. WILL MEDICATE PT.
[2019-08-24] MEDS ORDERED: MORPHINE SULFATE 2 MG/ML 1ML SYG IVP PRN (21:15)
--- NOTE | 2019-08-24 21:30 | NUR ---
RE-ASSESS PT CLAIMS OF RELIEF FROM CP AT THIS TIME. KEPT RESTED AND COMFORTABLE IN BED. WILL CONTINUE TO MONITOR. CALL LIGHT WITHIN REACH.
[2019-08-25] VITALS (9 sets, daily range): BP systolic 144–197; BP diastolic 62–110
--- NOTE | 2019-08-25 02:00 | NUR ---
ROUNDS PT RESTING WELL, FAIRLY ASLEEP WITH RESPIRATIONS EVEN AND UNLABORED. NO NOTED DISTRESS. KEPT UNDISTURBED FOR NOW. WILL MONITOR PT. CALL LIGHT WITHIN REACH.
[2019-08-25 04:08] LABS: CREATININE 5.4 mg/dL (0.5-1.5); POTASSIUM 4.5 mmol/L (3.5-5.1)
[2019-08-25 04:11] LABS: MEAN CORPUSCULAR HEMOGLOBIN 30.4 pg (27.0-33.0); MEAN CORPUSCULAR HGB CONC 33.2 g/dL (32.0-36.0); MEAN CORPUSCULAR VOLUME 91.7 fL (79-99); RED BLOOD CELL COUNT(AUTO) 2.4 MIL/uL (4.50-6.20); RED CELL DISTRIBUTION WIDTH 13.4 % (11.0-15.5); WHITE BLOOD COUNT (AUTO) 7.9 K/uL (4.8-10.8)
[2019-08-25] MEDS: HYDRALAZINE HCL 20 MG/ML VIAL IV PRN ×2 (05:07→11:33)
--- NOTE | 2019-08-25 05:07 | NUR ---
BP PT'S BP IS ELEVATED AT 167/90. NO COMPLAINTS VERBALIZED. SLEPT AT INTERVALS. MEDICATED WITH HYDRALAZINE IV. WILL RE-ASSESS PT.
--- NOTE | 2019-08-25 06:00 | NUR ---
RE-ASSESS PT IS HAVING SOB. PLACED ON O2 AT 2LPM VIA NC. RE-POSITIONED IN BED WITH HOB ELEVATED. O2 SAT=97%. PT'S BP IS STILL ELEVATED. FOR MORE CARE.
[2019-08-25] MEDS: INSULIN HUMULIN R 100 UNIT/ML 3ML SQ SCH ×4 (06:52→21:00)
[2019-08-25] MEDS: TAMSULOSIN HCL 0.4 MG CAP.ER.24H PO SCH (08:11)
[2019-08-25] MEDS: AMLODIPINE BESYLATE 2.5 MG TAB PO SCH (08:11)
[2019-08-25] MEDS: PANTOPRAZOLE SODIUM 40 MG TABLET.DR PO SCH (08:11)
[2019-08-25] MEDS ORDERED: FUROSEMIDE 40 MG TABLET ONE (12:26)
[2019-08-25] MEDS ORDERED: FUROSEMIDE 40 MG TABLET PO SCH (12:30)
[2019-08-25] MEDS: FUROSEMIDE 10 MG/ML 4ML VIAL IV SCH (13:30)
--- NOTE | 2019-08-25 18:00 | NUR ---
PT ASSESSMENT CAME TO CHECK ON PATIENT BREATHING IS BETTER, PT ON 2 LITERS/NC 02 STAT 96% B/P 162/85, HR 72, Addendum: 08/25/19 at 1833 by AARON MESSER RN RN EDEMA NOTICE TO BILATERAL ORBITALS DR. FAB ROGERS AWARE, METOPROLOL 25 MG ORDERED BID
--- NOTE | 2019-08-25 18:10 | NUR ---
NITRO PT C/O PRESSURE/PN TO CHEST AREA 7/10 ON PAIN SALE . PT WAS GIVEN 0.4 MG NITRO X 1
[2019-08-25] MEDS: NITROGLYCERIN 0.4 MG SL TAB SL PRN ×2 (18:14→18:22)
--- NOTE | 2019-08-25 18:15 | NUR ---
NITRO 2ND DOSE OF 0.4 MG NITRO GIVE TO PATIENT 5/10 PAIN SCALE TO CHEST AREA
--- NOTE | 2019-08-25 18:21 | NUR ---
Primary nurse reported facial swelling, and chest pain 5/10. Primary nurse already gave sl ntg x1 and cp now resolved. Upon assessment, pt to have eyelids swollen. Denies difficulty breathing or swallowing (previously noted shortness of breath appears improved after lasix administration). No swelling to lips to tongue. BP Notified MISAEL Valiente for [facility]. BP currently 174/80, hr 100, O2 sat 99% on 2lpm. She replied, lasix already ordered. Rec'd orders to have pt sit up, and start pt on metoprolol 25mg po bid. Ordered entered and honored.
[2019-08-25] MEDS: METOPROLOL TARTRATE 25 MG TAB PO SCH ×2 (18:35→22:24)
--- NOTE | 2019-08-25 19:00 | NUR ---
PT. NO LONGER HAVE CP 0/10 ON PAIN SCALE.
[2019-08-25] MEDS: ATORVASTATIN CALCIUM 10 MG TABLET PO SCH (22:24)
[2019-08-26] MEDS: FUROSEMIDE 10 MG/ML 4ML VIAL IV SCH ×2 (00:39→12:43)
[2019-08-26 03:59] VITALS: BP 141/60
[2019-08-26] MEDS: DEXTROSE 50%-WATER 50 ML DISP.SYRIN IV PRN (05:40)
[2019-08-26] MEDS: INSULIN HUMULIN R 100 UNIT/ML 3ML SQ SCH ×4 (05:43→21:02)
[2019-08-26] MEDS: TAMSULOSIN HCL 0.4 MG CAP.ER.24H PO SCH (07:56)
[2019-08-26] MEDS: AMLODIPINE BESYLATE 2.5 MG TAB PO SCH (07:56)
[2019-08-26] MEDS: PANTOPRAZOLE SODIUM 40 MG TABLET.DR PO SCH (07:56)
[2019-08-26 08:15] VITALS: BP 165/79
[2019-08-26] MEDS: METOPROLOL TARTRATE 25 MG TAB PO SCH ×2 (09:00→20:34)
[2019-08-26 11:16] VITALS: BP 147/64
[2019-08-26] MEDS: VANCOMYCIN 1.25 GM in SODIUM CHLORIDE 0.9% 250 ML IV SCH ×2 (20:00→20:35)
[2019-08-26 20:05] VITALS: BP 176/71
[2019-08-26 20:30] VITALS: BP 138/75
[2019-08-26] MEDS: ATORVASTATIN CALCIUM 10 MG TABLET PO SCH (20:33)
--- NOTE | 2019-08-26 22:00 | NUR ---
Dr. Rodriguez in to see patient informed him, the xuan catheter and dialysis would be done tomorrow, he also ordered a CBC, Renal Panel. Dr. Rodriguez made aware patient and patient's daughter had voiced that he wanted another towboat pilot. Dr. Rodriguez asked patient why, then he also informed him due to patient's health insurance no other towboat pilot can be consulted. Then the patient and Dr. Rodriguez both decided Dr. Rodrgiuez would continue with the patient's care.
--- NOTE | 2019-08-26 22:37 | NUR ---
I called Arvind ice house supervisor to check when patient would be going for the EDWIGE, he stated he did not know, just that the order read for patient to have b/p medication at 0500. INformed alterations supervisor that Dr. Rodriguez came by and ordered for IR to placed quintan catheter for dialysis tomorrow.
[2019-08-26 23:46] VITALS: BP 131/77
[2019-08-27] VITALS (15 sets, daily range): BP systolic 140–174; BP diastolic 67–94
[2019-08-27] MEDS: FUROSEMIDE 10 MG/ML 4ML VIAL IV SCH ×2 (01:03→13:30)
[2019-08-27 04:19] LABS: HEMATOCRIT 21.2 % (42-54); MEAN CORPUSCULAR HEMOGLOBIN 30.1 pg (27.0-33.0); MEAN CORPUSCULAR HGB CONC 33.5 g/dL (32.0-36.0); MEAN CORPUSCULAR VOLUME 89.8 fL (79-99); RED BLOOD CELL COUNT(AUTO) 2.36 MIL/uL (4.50-6.20); RED CELL DISTRIBUTION WIDTH 13.2 % (11.0-15.5); WHITE BLOOD COUNT (AUTO) 7.7 K/uL (4.8-10.8)
[2019-08-27 04:39] LABS: ALBUMIN 2.8 g/dL (3.5-5.0); CREATININE 6.6 mg/dL (0.5-1.5); PHOSPHORUS 6.5 mg/dL (2.5-4.9); POTASSIUM 4.3 mmol/L (3.5-5.1)
[2019-08-27] MEDS: METOPROLOL TARTRATE 25 MG TAB PO SCH ×2 (05:35→22:57)
[2019-08-27] MEDS: AMLODIPINE BESYLATE 2.5 MG TAB PO SCH (05:35)
[2019-08-27] MEDS: INSULIN HUMULIN R 100 UNIT/ML 3ML SQ SCH ×4 (05:35→20:04)
--- NOTE | 2019-08-27 07:10 | NUR ---
Incoming nurse made aware had paged the CLOUD AUTOMATION TESTER Myron due to patient critical results of chloride 84, no return call.
[2019-08-27] MEDS: TAMSULOSIN HCL 0.4 MG CAP.ER.24H PO SCH (09:00)
[2019-08-27] MEDS: SODIUM CHLORIDE 1,000 MG TAB PO SCH (09:00)
[2019-08-27] MEDS ORDERED: LIDOCAINE HCL 1% MDV 50ML VIAL ONE (11:30)
--- NOTE | 2019-08-27 11:37 | NUR ---
ORDER REC'D FOR HD CLINIC TRANSFER AT DISCHARGE TO [facility] IN [place] CALL MADE TO CLINIC [phone] SPOKE TO ISIDRO, ADVISED HER THIS CM JUST HEARD ASKING FOR CHAIR AT [facility] HERE. [facility] STATES WILL HAVE INSPECTOR METAL CAN THIS CM BACK RE TRANSFER REFERRAL. MAY NOT HAVE A CHAIR AVAILABLE WHEN PT IS DISCHARGED.
--- NOTE | 2019-08-27 12:10 | NUR ---
CATHETER PLACEMENT REPORT RECEIVED FROM ELIANE RANKIN (JAPANESE PROFESSOR). PATIENT S/P EDIN CATHETER PLACEMENT BY IR. NO BLEEDING OR BRUISING TO SITE. PATIENT STABLE AT THIS TIME.
[2019-08-27] MEDS ORDERED: MIDAZOLAM HCL 1 MG/ML 2ML VIAL ONE (13:04)
[2019-08-27] MEDS ORDERED: FENTANYL CITRATE PF 50 MCG/1 ML 2ML VIAL ONE (13:04)
[2019-08-27] MEDS ORDERED: LIDOCAINE HCL 2% VISCOUS 15 ML UDCUP ONE (14:57)
--- NOTE | 2019-08-27 15:25 | NUR ---
EDWIGE PROCEDURE PERFORMED BY DR. RONDON AND TOLERATED PROCEDURE. END OF PROCEDURE AT 1549. PATIENT RECOVERED IN PROCEDURE ROOM. REPORT GIVEN TO JESSICA HONG AND PATIENT TRANSPORTED TO [facility] AT 1625. PT DROWSY AND RESPONDS TO STIMULI WITH NO C/O PAIN.
--- NOTE | 2019-08-27 16:18 | NUR ---
REPORT RECEIVED FROM ELIANE LUGO. PATIENT S/P EDWIGE BY DR. Jabari RONDON, RESULTS WERE NEGATIVE. PATIENT TOLERATED PROCEDURE WELL. PATIENT STABLE AT THIS TIME.
--- NOTE | 2019-08-27 16:50 | NUR ---
DC PLAN WILL BE HOME WITH ABX AT HD CLINIC FINAL BLOOD CULTURES SENSITIVE TO VANCOMYCIN EDWIGE TO DETERMINE LENGTH OF NEED FOR ABX. CINDI PRIETO STATES WILL PLACE PERMACATH MAYBE NEXT FRIDAY. WILL FOLLOW . SPOKE TO [facility] HERE IN [place]. PATIENT ON WAITING LIST FOR CHAIR- WILL RETURN TO [facility] TO DIALYZE/REC ABX ON DISCHARGE Addendum: 08/27/19 at 1653 by GEN MCGOVERN RN Amended: Links added.
[2019-08-27] MEDS: PANTOPRAZOLE SODIUM 40 MG TABLET.DR PO SCH (17:41)
--- NOTE | 2019-08-27 20:01 | NUR ---
ROUNDS PT A/A/OX3. RECEIVING HD AT THIS TIME. REPORTS NAUSEA, ADMIN PRN ANTNAUSEA MEDICATION-SEE MAR. DIALYSIS NURSE IN ROOM WITH PT. WILL RETURN TO ADMIN MEDS AFTER DIALYSIS IS COMPLETE.
[2019-08-27] MEDS: ATORVASTATIN CALCIUM 10 MG TABLET PO SCH (22:57)
[2019-08-28] MEDS: FUROSEMIDE 10 MG/ML 4ML VIAL IV SCH ×2 (00:49→14:07)
[2019-08-28] MEDS: ACETAMINOPHEN-CODEINE 300/30MG TAB PO PRN (01:14)
--- NOTE | 2019-08-28 02:36 | NUR ---
ROUNDS PT RESTING WITH EYES CLOSED IN A RELAXED STATE. EVEN, NON-LABORED RESPIRATIONS. NO DISTRESS NOTED AT THIS TIME. CALL LIGHT/ PHONE WITHIN REACH ON BED. BED IN LOWEST POSITION. WILL CONTINUE TO MONITOR.
[2019-08-28 04:00] VITALS: BP 153/58
[2019-08-28 05:24] LABS: BASOPHILS % (AUTO) 0.4 % (0.0-5.0); EOSINOPHILS % (AUTO) 1.3 % (0.0-8.0); HEMATOCRIT 21.7 % (42-54); LYMPHOCYTES % (AUTO) 11.6 % (21.0-51.0); MEAN CORPUSCULAR HGB CONC 33.6 g/dL (32.0-36.0); MEAN CORPUSCULAR VOLUME 89.3 fL (79-99); MONOCYTES % (AUTO) 4.9 % (3.0-13.0); NEUTROPHILS % (AUTO) 81.7 % (40.0-77.0); PLATELET COUNT (AUTO) 169 K/uL (130-400); RED BLOOD CELL COUNT(AUTO) 2.43 MIL/uL (4.50-6.20); RED CELL DISTRIBUTION WIDTH 13.2 % (11.0-15.5); WHITE BLOOD COUNT (AUTO) 7.6 K/uL (4.8-10.8)
[2019-08-28 05:50] LABS: ALBUMIN 2.7 g/dL (3.5-5.0); CREATININE 4.6 mg/dL (0.5-1.5)
[2019-08-28] MEDS: INSULIN HUMULIN R 100 UNIT/ML 3ML SQ SCH ×4 (06:36→21:00)
[2019-08-28 08:00] VITALS: BP 131/71
[2019-08-28] MEDS: METOPROLOL TARTRATE 25 MG TAB PO SCH ×2 (08:50→21:10)
[2019-08-28] MEDS: AMLODIPINE BESYLATE 2.5 MG TAB PO SCH (08:50)
--- NOTE | 2019-08-28 08:52 | NUR ---
pt receiving dialysis now and pressure 160/72, dialysis nurse asked me to go ahead and give him his am bp meds now to help bring it down; will give rest of am meds after dialysis treatment
[2019-08-28] MEDS ORDERED: HEPARIN SODIUM 5000UNIT/ML 1ML VIAL ONE (09:47)
[2019-08-28] MEDS: SEVELAMER HCL 800 MG TABLET PO SCH ×2 (11:38→16:57)
[2019-08-28] MEDS: SODIUM CHLORIDE 1,000 MG TAB PO SCH ×3 (11:38→21:10)
[2019-08-28] MEDS: TAMSULOSIN HCL 0.4 MG CAP.ER.24H PO SCH (11:39)
[2019-08-28] MEDS: PANTOPRAZOLE SODIUM 40 MG TABLET.DR PO SCH (11:39)
[2019-08-28 12:00] VITALS: BP 158/75
[2019-08-28 16:00] VITALS: BP 170/67
[2019-08-28 19:15] VITALS: BP 163/70
[2019-08-28] MEDS: ATORVASTATIN CALCIUM 10 MG TABLET PO SCH (21:10)
[2019-08-28] MEDS: VANCOMYCIN 1.25 GM in SODIUM CHLORIDE 0.9% 250 ML IV SCH (21:28)
[2019-08-28] MEDS: HYDRALAZINE HCL 20 MG/ML VIAL IV PRN (23:07)
[2019-08-28 23:33] VITALS: BP 167/60
[2019-08-29] MEDS: FUROSEMIDE 10 MG/ML 4ML VIAL IV SCH ×3 (01:36→18:46)
[2019-08-29 03:37] VITALS: BP 146/80
[2019-08-29] MEDS: SEVELAMER HCL 800 MG TABLET PO SCH ×3 (06:52→17:29)
[2019-08-29] MEDS: INSULIN HUMULIN R 100 UNIT/ML 3ML SQ SCH ×4 (06:53→20:28)
[2019-08-29 08:00] VITALS: BP 147/51
[2019-08-29] MEDS: SODIUM CHLORIDE 1,000 MG TAB PO SCH ×2 (10:00→20:33)
[2019-08-29] MEDS: METOPROLOL TARTRATE 25 MG TAB PO SCH ×2 (10:00→20:34)
[2019-08-29] MEDS: AMLODIPINE BESYLATE 2.5 MG TAB PO SCH (10:00)
[2019-08-29] MEDS: PANTOPRAZOLE SODIUM 40 MG TABLET.DR PO SCH (10:00)
[2019-08-29] MEDS: TAMSULOSIN HCL 0.4 MG CAP.ER.24H PO SCH (10:00)
[2019-08-29 12:02] VITALS: BP 166/43
--- NOTE | 2019-08-29 12:54 | NUR ---
PT C/O DIZZYNESS, HE IS SITTING IN THE CHAIR; I CHECKED HIS BP AND IT IS 129/66 W/ HR OF 54; PT RECENTLY RECEIVED LASIX 40 IVP, I BELIEVE THAT IS THE CAUSE OF HIS DIZZYNESS.
[2019-08-29 16:00] VITALS: BP 141/90
[2019-08-29 19:20] VITALS: BP 156/57
[2019-08-29] MEDS: ATORVASTATIN CALCIUM 10 MG TABLET PO SCH (20:33)
--- NOTE | 2019-08-29 20:35 | NUR ---
MEDS SHIFT ASSESSMENT DONE, PLEASE REFER TO CHART. DUE MEDS ADMINISTERED, TOLERATED WELL. KEPT RESTED AND COMFORTABLE IN BED. CALL LIGHT WITHIN REACH. WILL MONITOR PT. Addendum: 08/29/19 at 2333 by JUAN MIGUEL PAUL RN RN Amended: Links added.
--- NOTE | 2019-08-29 22:00 | NUR ---
ROUNDS PT ALREADY ASLEEP. NO DISTRESS NOTED. KEPT RESTED AND COMFORTABLE. WILL MONITOR PT.
[2019-08-29 23:24] VITALS: BP 166/52
--- NOTE | 2019-08-30 02:00 | NUR ---
ROUNDS PT RESTING WELL, FAIRLY ASLEEP. NO DISTRESS NOTED. KEPT RESTED AND COMFORTABLE. CALL LIGHT WITHIN REACH. WILL MONITOR PT.
[2019-08-30] MEDS: FUROSEMIDE 10 MG/ML 4ML VIAL IV SCH ×2 (02:31→11:15)
[2019-08-30 04:04] VITALS: BP 146/60
--- NOTE | 2019-08-30 05:20 | NUR ---
ROUNDS PT RESTING IN BED. NO DISTRESS NOTED. SALINE LOCKED FLUSHED, PATENT. KEPT NPO. FOR MORE CARE.
[2019-08-30] MEDS: INSULIN HUMULIN R 100 UNIT/ML 3ML SQ SCH ×3 (05:54→16:30)
[2019-08-30 06:06] LABS: BASOPHILS % (AUTO) 0.4 % (0.0-5.0); EOSINOPHILS % (AUTO) 1.6 % (0.0-8.0); HEMATOCRIT 22.6 % (42-54); MEAN CORPUSCULAR HEMOGLOBIN 30.2 pg (27.0-33.0); MEAN CORPUSCULAR HGB CONC 32.7 g/dL (32.0-36.0); MEAN CORPUSCULAR VOLUME 92.2 fL (79-99); MONOCYTES % (AUTO) 4.7 % (3.0-13.0); PLATELET COUNT (AUTO) 168 K/uL (130-400); RED BLOOD CELL COUNT(AUTO) 2.45 MIL/uL (4.50-6.20); RED CELL DISTRIBUTION WIDTH 13.5 % (11.0-15.5); WHITE BLOOD COUNT (AUTO) 7.5 K/uL (4.8-10.8)
[2019-08-30 06:12] LABS: CREATININE 4.9 mg/dL (0.5-1.5); MAGNESIUM 1.7 mg/dL (1.80-2.40); POTASSIUM 3.6 mmol/L (3.5-5.1)
[2019-08-30] MEDS: SEVELAMER HCL 800 MG TABLET PO SCH ×3 (08:00→16:40)
[2019-08-30] MEDS: AMLODIPINE BESYLATE 2.5 MG TAB PO SCH (08:10)
[2019-08-30] MEDS: PANTOPRAZOLE SODIUM 40 MG TABLET.DR PO SCH (08:10)
[2019-08-30] MEDS: METOPROLOL TARTRATE 25 MG TAB PO SCH (08:10)
[2019-08-30] MEDS: TAMSULOSIN HCL 0.4 MG CAP.ER.24H PO SCH (08:11)
[2019-08-30] MEDS: SODIUM CHLORIDE 1,000 MG TAB PO SCH (08:11)
[2019-08-30] MEDS ORDERED: MAGNESIUM 2GM PREMIX 50ML 50 ML IV SCH (08:15)
[2019-08-30 08:41] VITALS: BP 179/77
[2019-08-30] MEDS ORDERED: LIDOCAINE HCL 1% MDV 50ML VIAL ONE (08:55)
[2019-08-30 11:36] VITALS: BP 170/67
[2019-08-30] MEDS ORDERED: HEPARIN SODIUM 5000UNIT/ML 1ML VIAL ONE (13:50)
--- NOTE | 2019-08-30 15:39 | NUR ---
NUTRITION EDUCATION BOUBACAR provided Renal Dialysis Nutrition Education 08/12/19 on previous visit. Pt verbalized understanding. Reference material placed in Pt chart. Addendum: 08/30/19 at [address] Amended: Links added.
--- NOTE | 2019-08-30 15:44 | NUR ---
RD NOTIFICATION Pt admitted with Bacteremia d/t infected PermaCath. Pt NPO at time of screen, Pending permaCath placement.. Pt History of ESRD on HD, CAD/CABG, HTN. Pt with Obesity Class I (BMI 31.3). Recommend Advance diet as tolerated to Renal Dialysis when medically feasible Nutrition education previously provided. RD to continue to monitor. Please notify as additional nutrition concerns arise. Thank you. Addendum: 08/30/19 at [address] Amended: Links added.
[2019-08-30] MEDS ORDERED: NITROGLYCERIN 0.4 MG SL TAB SL PRN (16:00)
[2019-08-30] MEDS ORDERED: HEPARIN SODIUM 5000UNIT/ML 1ML VIAL IJ PRN ×2 (16:00)
[2019-08-30] MEDS ORDERED: SODIUM CHLORIDE 0.9% 1000ML 1,000 ML IV PRN (16:00)
[2019-08-30] MEDS ORDERED: LIDOCAINE HCL-MPF 1% 2ML VIAL IJ PRN (16:00)
[2019-08-30] MEDS ORDERED: 0.9% SODIUM CHLORIDE 1000 ML IV BAG IV PRN (16:00)
[2019-08-30] MEDS ORDERED: ACETAMINOPHEN 325 MG TAB PO PRN (16:00)
[2019-08-30 16:23] VITALS: BP 178/73
--- NOTE | 2019-08-30 18:22 | NUR ---
discharge PATIENT GIVEN DISCHARGE INSTRUCTIONS AND EDUCATION ON FOLLOW UP APPOINTMENTS AND NEW PRESCRIBED MEDICATIONS. PATIENT VERBALIZED UNDERSTANDING OF ALL EDUCATION GIVEN VIA TEACH BACK. IV DISCONTINUED, CATHETER INTACT. PATIENT WAITING FOR HIS RIDE TO COME AND PICK HIM UP. NO DISTRESS NOTED AT THIS TIME,
--- NOTE | 2019-08-31 08:27 | NUR ---
DC HOME TO HAVE ABX AT HD Addendum: 08/31/19 at 0827 by GEN MCGOVERN RN CM Amended: Links added.
== END 2019-08-30 18:45 | disposition home or self-care (01) | DRG 314 ==
LOC: EDH 13:41 → EDHIP 14:40 → 3BH 16:01
PROVIDERS: ADMIT Internal Medicine Critical Care Medicine; ATTEND Internal Medicine Critical Care Medicine
PROC: 5A1D70Z Performance of Urinary Filtration, Intermittent, Less than 6 Hours Per Day (ICD-10-PCS; 2019-08-23)
PROC: 02PYX3Z Removal of Infusion Device from Great Vessel, External Approach (ICD-10-PCS; 2019-08-23)
PROC: 5A1D70Z Performance of Urinary Filtration, Intermittent, Less than 6 Hours Per Day (ICD-10-PCS; 2019-08-27)
PROC: 02H633Z Insertion of Infusion Device into Right Atrium, Percutaneous Approach (ICD-10-PCS; 2019-08-27)
PROC: B5181ZA Fluoroscopy of Superior Vena Cava using Low Osmolar Contrast, Guidance (ICD-10-PCS; 2019-08-27)
PROC: B24BZZ4 Ultrasonography of Heart with Aorta, Transesophageal (ICD-10-PCS; 2019-08-27)
PROC: 5A1D70Z Performance of Urinary Filtration, Intermittent, Less than 6 Hours Per Day (ICD-10-PCS; 2019-08-28)
PROC: 0JH63XZ Insertion of Tunneled Vascular Access Device into Chest Subcutaneous Tissue and Fascia, Percutaneous Approach (ICD-10-PCS; principal; 2019-08-30)
PROC: 02H633Z Insertion of Infusion Device into Right Atrium, Percutaneous Approach (ICD-10-PCS; 2019-08-30)
PROC: B5181ZA Fluoroscopy of Superior Vena Cava using Low Osmolar Contrast, Guidance (ICD-10-PCS; 2019-08-30)
PROC: 02PYX3Z Removal of Infusion Device from Great Vessel, External Approach (ICD-10-PCS; 2019-08-30)
PROC: 5A1D70Z Performance of Urinary Filtration, Intermittent, Less than 6 Hours Per Day (ICD-10-PCS; 2019-08-30)
DX: T82.7XXA Infection and inflammatory reaction due to other cardiac and vascular devices, implants and grafts, initial encounter (principal); N18.6 End stage renal disease; I12.0 Hypertensive chronic kidney disease with stage 5 chronic kidney disease or end stage renal disease; E87.1 Hypo-osmolality and hyponatremia; I25.10 Atherosclerotic heart disease of native coronary artery without angina pectoris; E11.22 Type 2 diabetes mellitus with diabetic chronic kidney disease; D63.8 Anemia in other chronic diseases classified elsewhere; B95.2 Enterococcus as the cause of diseases classified elsewhere; B96.89 Other specified bacterial agents as the cause of diseases classified elsewhere; E11.51 Type 2 diabetes mellitus with diabetic peripheral angiopathy without gangrene; E87.70 Fluid overload, unspecified; I07.1 Rheumatic tricuspid insufficiency; I35.8 Other nonrheumatic aortic valve disorders; R53.81 Other malaise; I87.8 Other specified disorders of veins; Y84.1 Kidney dialysis as the cause of abnormal reaction of the patient, or of later complication, without mention of misadventure at the time of the procedure; Y92.89 Other specified places as the place of occurrence of the external cause; Z89.431 Acquired absence of right foot; Z79.4 Long term (current) use of insulin; Z79.899 Other long term (current) drug therapy; Z99.2 Dependence on renal dialysis; Z95.1 Presence of aortocoronary bypass graft
CPT/HCPCS: 36415; 36556; 36558; 36589; 71045; 77001; 80048; 80069; 80202; 82948; 83735; 84484; 85025; 85027; 85610; 85730; 87040; 87070; 87077; 87186; 90935; 93005; 93306; 93313; 93356; 94664; 97039; 99152; 99153; C1750; C1752; G0378; J0360; J1644; J1815; J1940; J2250; J2405; J2543; J3010; J3370; J3490; J7050; J7070

== ENCOUNTER 2019-09-06 19:35 | Inpatient (IN) | payer OTHER ==
[~2019-09-06] VITALS: Ht 149.9 cm; Wt 73.3 kg
[2019-09-06 20:17] LABS: BASOPHILS % (AUTO) 0.7 % (0.0-5.0); HEMATOCRIT 22.6 % (42-54); LYMPHOCYTES % (AUTO) 10.7 % (21.0-51.0); MEAN CORPUSCULAR HEMOGLOBIN 30.1 pg (27.0-33.0); MEAN CORPUSCULAR HGB CONC 31.4 g/dL (32.0-36.0); MEAN CORPUSCULAR VOLUME 95.8 fL (79-99); MONOCYTES % (AUTO) 6.4 % (3.0-13.0); NEUTROPHILS % (AUTO) 81.1 % (40.0-77.0); PLATELET COUNT (AUTO) 178 K/uL (130-400); RED BLOOD CELL COUNT(AUTO) 2.36 MIL/uL (4.50-6.20); RED CELL DISTRIBUTION WIDTH 14.7 % (11.0-15.5); WHITE BLOOD COUNT (AUTO) 8.8 K/uL (4.8-10.8)
[2019-09-06 20:34] LABS: CREATININE 5.3 mg/dL (0.5-1.5); INR 1.06 (0.85-1.15); PARTIAL THROMBOPLASTIN TIME 28.7 SEC (26.3-35.5); POTASSIUM 3.9 mmol/L (3.5-5.1); PROTHROMBIN TIME 11.4 SEC (9.6-11.6)
[2019-09-06] MEDS ORDERED: FUROSEMIDE 10 MG/ML 4ML VIAL ONE (20:39)
[2019-09-06 20:45] LABS: ALBUMIN 2.8 g/dL (3.5-5.0); BILIRUBIN,TOTAL 0.5 mg/dL (0.2-1.0); TOTAL PROTEIN, SERUM 6.4 g/dL (6.0-8.3); TROPONIN I 0.06 ng/mL (0.00-0.06)
[2019-09-06 20:49] LABS: APPEARANCE,URINE Clear (CLEAR); BILIRUBIN,URINE Negative (NEGATIVE); COLOR,URINE Yellow (YELLOW); GLUCOSE, URINE (UA) 500 mg/dL (NEGATIVE); KETONES,URINE Trace mg/dL (NEGATIVE); LEUKOCYTE ESTERASE ,URINE Negative (NEGATIVE); NITRATE,URINE Negative (NEGATIVE); OCCULT BLOOD,URINE Small (NEGATIVE); PROTEIN,URINE >=1000 mg/dL (NEGATIVE)
[2019-09-06 20:57] LABS: BACTERIA,URINE Rare /HPF (None Seen); WBC,URINE 0-1 /HPF (0-1)
[2019-09-06 20:59] LABS: SQUAMOUS EPITHELIAL CELL,UR Rare /HPF (0-2); TRANSITIONAL EPI CELLS,URINE Rare /HPF (None Seen)
[2019-09-06 21:02] LABS: ABG BASE EXCESS 2.3 mmol/L (-2.0-3.0); ABG HCO3 25.8 mmol/L (21.0-28.0); ABG OXYGEN SATURATION 97.3 % (95.0-99.0); ABG PCO2 37 mmHg (35-48)
[2019-09-06] MEDS ORDERED: NITROGLYCERIN 1GM/1 INCH PACKET TD ONE (21:37)
[2019-09-06] MEDS ORDERED: VANCOMYCIN 1GM+NS 250ML 250 ML IV ONE (22:59)
[2019-09-06] MEDS ORDERED: ASPIRIN 325 MG TABLET ONE (22:59)
[2019-09-06] MEDS ORDERED: ZOSYN 3.375GM+NS 50ML 50 ML IV ONE (22:59)
[2019-09-06] MEDS ORDERED: INSULIN HUMULIN R 100 UNIT/ML 3ML ONE (23:00)
[2019-09-07] MEDS ORDERED: HYDRALAZINE HCL 20 MG/ML VIAL ONE (01:17)
--- NOTE | 2019-09-07 03:45 | NUR ---
REPORT RECEIVED FROM ER. RENATA DEL RIO. PT ADMITTED FOR PULMONARY EDEMA, AND ELEVATED TROPONIN.
[2019-09-07 04:05] VITALS: BP 141/85
[2019-09-07] MEDS: INSULIN HUMULIN R 100 UNIT/ML 3ML SQ SCH ×7 (07:30→20:03)
[2019-09-07 07:58] LABS: HEMATOCRIT 21.7 % (42-54); MEAN CORPUSCULAR HGB CONC 31.3 g/dL (32.0-36.0); MEAN CORPUSCULAR VOLUME 95.6 fL (79-99); PLATELET COUNT (AUTO) 162 K/uL (130-400); RED BLOOD CELL COUNT(AUTO) 2.27 MIL/uL (4.50-6.20); RED CELL DISTRIBUTION WIDTH 14.8 % (11.0-15.5); WHITE BLOOD COUNT (AUTO) 8.6 K/uL (4.8-10.8)
[2019-09-07 08:00] VITALS: BP 137/85
[2019-09-07 08:15] LABS: CREATININE 5.6 mg/dL (0.5-1.5)
[2019-09-07 08:54] LABS: EOSINOPHILS % (MANUAL) 2 % (1-6); LYMPHOCYTES % (MANUAL) 11 % (22-44); MAN.DIFF COMMENT-IMPRESSION MANUAL DIFFERENTIAL; MONOCYTES % (MANUAL) 2 % (2-9); PLATELET MORPHOLOGY COMMENT ADEQUATE; SEGMENTED NEUTROPHILS % 85 % (40-70)
[2019-09-07] MEDS ORDERED: ONDANSETRON HCL 4 MG/2 ML VIAL IV PRN (11:15)
[2019-09-07] MEDS ORDERED: NITROGLYCERIN 0.4 MG SL TAB SL PRN (11:15)
[2019-09-07] MEDS ORDERED: ZOLPIDEM TARTRATE 5 MG TAB PO PRN (11:15)
[2019-09-07] MEDS ORDERED: MORPHINE SULFATE 2 MG/ML 1ML SYG IV PRN (11:15)
[2019-09-07] MEDS ORDERED: GUAIFENESIN-DM 200/20 MG 10 ML PO PRN (11:15)
[2019-09-07] MEDS ORDERED: ACETAMINOPHEN 325 MG TAB PO PRN ×2 (11:15)
[2019-09-07] MEDS ORDERED: DiphenhydrAMINE HCL 50 MG/ML VIAL IV PRN (11:15)
[2019-09-07] MEDS ORDERED: ACETAMINOPHEN-CODEINE 300/30MG TAB PO PRN (11:15)
[2019-09-07] MEDS ORDERED: DIPHENHYDRAMINE HCL 25 MG CAPSULE PO PRN (11:15)
[2019-09-07] MEDS ORDERED: MAG HYDROX/AL HYDROX/SIMETH ES 30 ML SUSP UDCUP PO PRN (11:15)
[2019-09-07] MEDS ORDERED: LACTULOSE 20 GM/30 ML UDCUP PO PRN (11:15)
[2019-09-07 11:16] VITALS: BP 133/95
[2019-09-07 16:00] VITALS: BP 143/79
[2019-09-07] MEDS ORDERED: HEPARIN SODIUM 5000UNIT/ML 1ML VIAL ONE (16:01)
[2019-09-07] MEDS ORDERED: 0.9% SODIUM CHLORIDE 1000 ML IV BAG IV PRN (16:45)
[2019-09-07] MEDS ORDERED: SODIUM CHLORIDE 0.9% 1000ML 1,000 ML IV PRN (16:45)
[2019-09-07 18:07] LABS: SPECIMENTYPE,BODY FLUID PLEURAL
[2019-09-07 18:08] LABS: APPEARANCE BODY FLUID SLIGHTLY CLOUDY (CLEAR); COLOR,BODY FLUID YELLOW (LT YELLOW); TOTAL VOLUME,BODY FLUID 840 mL
[2019-09-07 18:12] LABS: BODY FLUID WBC 58 /cu. mm.
[2019-09-07 18:13] LABS: BODY FLUID RBC 532 /cu. mm.
[2019-09-07 19:30] VITALS: BP 163/87
[2019-09-07] MEDS: HEPARIN SODIUM 5000UNIT/ML 1ML VIAL SQ SCH (19:53)
[2019-09-07] MEDS: ATORVASTATIN CALCIUM 20 MG TABLET PO SCH (19:54)
[2019-09-07] MEDS: FAMOTIDINE 20MG TAB 20 MG TAB PO SCH (19:54)
[2019-09-07] MEDS: FUROSEMIDE 10 MG/ML 4ML VIAL IV SCH (19:54)
[2019-09-07] MEDS: METOPROLOL TARTRATE 25 MG TAB PO SCH (19:54)
[2019-09-07 20:09] LABS: BF LYMPHOCYTE 88 %; BF MONOCYTE 1 %; BF OTHER CELLS 7
[2019-09-08] VITALS (7 sets, daily range): BP systolic 128–161; BP diastolic 61–78
[2019-09-08 04:35] LABS: BASOPHILS % (AUTO) 0.6 % (0.0-5.0); EOSINOPHILS % (AUTO) 4.9 % (0.0-8.0); HEMATOCRIT 23.6 % (42-54); LYMPHOCYTES % (AUTO) 16.9 % (21.0-51.0); MEAN CORPUSCULAR HEMOGLOBIN 30.6 pg (27.0-33.0); MEAN CORPUSCULAR HGB CONC 32.6 g/dL (32.0-36.0); MEAN CORPUSCULAR VOLUME 93.7 fL (79-99); MONOCYTES % (AUTO) 7.5 % (3.0-13.0); PLATELET COUNT (AUTO) 154 K/uL (130-400); RED BLOOD CELL COUNT(AUTO) 2.52 MIL/uL (4.50-6.20); RED CELL DISTRIBUTION WIDTH 15.5 % (11.0-15.5); WHITE BLOOD COUNT (AUTO) 6.9 K/uL (4.8-10.8)
[2019-09-08] MEDS: FUROSEMIDE 10 MG/ML 4ML VIAL IV SCH ×2 (04:56→20:00)
[2019-09-08 04:59] LABS: B-TYPE NATRIURETIC PEPTIDE 1750 pg/mL (0-100)
[2019-09-08 05:03] LABS: ALBUMIN 2.4 g/dL (3.5-5.0); BILIRUBIN,TOTAL 0.7 mg/dL (0.2-1.0); CREATININE 4.2 mg/dL (0.5-1.5); MAGNESIUM 1.7 mg/dL (1.80-2.40); PHOSPHORUS 2.6 mg/dL (2.5-4.9); POTASSIUM 4.3 mmol/L (3.5-5.1); TOTAL PROTEIN, SERUM 5.7 g/dL (6.0-8.3)
[2019-09-08] MEDS ORDERED: MAGNESIUM 2GM PREMIX 50ML 50 ML IV PRN (05:30)
[2019-09-08] MEDS ORDERED: MAGNESIUM 2GM PREMIX 50ML 50 ML IV ONE (05:36)
[2019-09-08] MEDS: INSULIN HUMULIN R 100 UNIT/ML 3ML SQ SCH ×8 (05:41→21:00)
[2019-09-08 06:49] LABS: ABG BASE EXCESS 5.9 mmol/L (-2.0-3.0); ABG HCO3 31.4 mmol/L (21.0-28.0); ABG OXYGEN SATURATION 96.7 % (95.0-99.0); ABG PCO2 48 mmHg (35-48)
[2019-09-08] MEDS: FAMOTIDINE 20MG TAB 20 MG TAB PO SCH ×2 (08:15→22:53)
[2019-09-08] MEDS: METOPROLOL TARTRATE 25 MG TAB PO SCH ×2 (08:15→22:53)
[2019-09-08] MEDS: HEPARIN SODIUM 5000UNIT/ML 1ML VIAL SQ SCH ×2 (08:17→22:54)
--- NOTE | 2019-09-08 11:30 | NUR ---
DCP CM met with pt discussed dc plans. Pt is independent prior to admission, lives at home with spouse and daughter. Pt uses cane, goes to [facility]. Denies any other equipments/services. Feels safe to go back home, spouse able to assist with transportation and needs as necessary. DC plan to home once stable. CM to cont to follow up. Addendum: 09/08/19 at 1131 by ROMEL MICHELLE LVN CM Amended: Links added.
--- NOTE | 2019-09-08 12:23 | NUR ---
PER CONCEPCIÓN ([facility]), Pt NEEDS DIALYSIS TODAY. CALLED DR. PUENTE FOR ORDERS. ANSWERING SERVICE SAYS WILL PAGE HIM. CHERRI.
--- NOTE | 2019-09-08 13:31 | NUR ---
CALLED DR. PUENTE AGAIN FOR POSSIBLE HEMODIALYSIS ORDERS. SPOKE WITH ANSWERING SERVICE....WILL BE PAGED AGAIN. AWAITING POSSIBLE HEMODIALYSIS ORDERS, OR NOT SO BLOOD TRANSFUSION MAY BE STARTED.
--- NOTE | 2019-09-08 14:46 | NUR ---
DR. PUENTE CALLS BACK. OKAYS DIALYSIS FOR TODAY; 3L TO BE REMOVED OVER 3HRS. CALLED AND UPDATED DIALYSIS NURSE, MURTAZA.=
--- NOTE | 2019-09-08 15:56 | NUR ---
[id number] patient signed PICHARDO Letter, I faxed PICHARDO Letter to [phone] and placed in chart under consent tab.
[2019-09-08] MEDS ORDERED: SODIUM CHLORIDE 0.9% 250 ML IV ONE (17:30)
[2019-09-08] MEDS: ATORVASTATIN CALCIUM 20 MG TABLET PO SCH (22:53)
[2019-09-09 03:46] VITALS: BP 146/66
[2019-09-09 04:18] LABS: BASOPHILS % (AUTO) 0.8 % (0.0-5.0); EOSINOPHILS % (AUTO) 5.9 % (0.0-8.0); HEMATOCRIT 28.8 % (42-54); LYMPHOCYTES % (AUTO) 21.2 % (21.0-51.0); MEAN CORPUSCULAR HEMOGLOBIN 29.4 pg (27.0-33.0); MEAN CORPUSCULAR HGB CONC 32.3 g/dL (32.0-36.0); MEAN CORPUSCULAR VOLUME 91.1 fL (79-99); MONOCYTES % (AUTO) 7.5 % (3.0-13.0); NEUTROPHILS % (AUTO) 64.5 % (40.0-77.0); PLATELET COUNT (AUTO) 157 K/uL (130-400); RED BLOOD CELL COUNT(AUTO) 3.16 MIL/uL (4.50-6.20); RED CELL DISTRIBUTION WIDTH 15.9 % (11.0-15.5); WHITE BLOOD COUNT (AUTO) 7.5 K/uL (4.8-10.8)
[2019-09-09] MEDS: FUROSEMIDE 10 MG/ML 4ML VIAL IV SCH ×2 (05:34→16:34)
[2019-09-09] MEDS: INSULIN HUMULIN R 100 UNIT/ML 3ML SQ SCH ×5 (06:11→20:43)
[2019-09-09 07:00] VITALS: BP 181/86
[2019-09-09] MEDS: HEPARIN SODIUM 5000UNIT/ML 1ML VIAL SQ SCH ×2 (09:00→20:43)
[2019-09-09 09:41] LABS: RETICULOCYTE % (AUTO) 3.29 % (0.42-2.23)
[2019-09-09 10:47] LABS: % IRON SATURATION 18.5 % (30-44)
[2019-09-09 11:00] VITALS: BP 157/87
[2019-09-09] MEDS: METOPROLOL TARTRATE 25 MG TAB PO SCH ×2 (11:34→20:36)
[2019-09-09] MEDS: FAMOTIDINE 20MG TAB 20 MG TAB PO SCH ×2 (11:34→20:36)
--- NOTE | 2019-09-09 12:40 | NUR ---
CM Note: [facility] pending O2 approval and delivery CM spoke to pt, agreeable for home O2, telephone consent WENDIE signed for [facility]. Faxed order and clinicals, confirmation received. Pt pending approval and delivery in pt room. Primary nurse aware. CM to cont to follow up.
--- NOTE | 2019-09-09 15:26 | NUR ---
CM Note: [facility] approval, will deliver O2 at home CM spoke to Carmen w/[facility], pt has approval. Per Carmen will deliver portable and concentrator at home. Family will bring portable to hospital once pt ready to DC. Primary nurse aware. As per nurse Dr Ross wants pt to have dialysis tomorrow then dc home. Pt safe to dc via private car once MD clear. CM to cont to follow up.
[2019-09-09] MEDS ORDERED: COMPOUND IV MISC 1 EACH IVSOLN MISC PRN (15:30)
[2019-09-09 16:00] VITALS: BP 159/87
[2019-09-09] MEDS: IRON SUCROSE COMPLEX 100 MG in SODIUM CHLORIDE 0.9% 50 ML IV SCH (16:35)
[2019-09-09 19:13] VITALS: BP 167/85
[2019-09-09] MEDS: ATORVASTATIN CALCIUM 20 MG TABLET PO SCH ×2 (20:33→20:36)
[2019-09-09 23:12] VITALS: BP 159/77
[2019-09-10] VITALS (7 sets, daily range): BP systolic 145–202; BP diastolic 68–88
[2019-09-10 04:23] LABS: BASOPHILS % (AUTO) 0.9 % (0.0-5.0); EOSINOPHILS % (AUTO) 5.4 % (0.0-8.0); HEMATOCRIT 28.8 % (42-54); LYMPHOCYTES % (AUTO) 18.2 % (21.0-51.0); MEAN CORPUSCULAR HEMOGLOBIN 29.5 pg (27.0-33.0); MEAN CORPUSCULAR HGB CONC 32.6 g/dL (32.0-36.0); MEAN CORPUSCULAR VOLUME 90.3 fL (79-99); MONOCYTES % (AUTO) 8.2 % (3.0-13.0); PLATELET COUNT (AUTO) 138 K/uL (130-400); RED BLOOD CELL COUNT(AUTO) 3.19 MIL/uL (4.50-6.20); RED CELL DISTRIBUTION WIDTH 14.9 % (11.0-15.5); WHITE BLOOD COUNT (AUTO) 6.9 K/uL (4.8-10.8)
[2019-09-10 04:34] LABS: CREATININE 3.4 mg/dL (0.5-1.5); MAGNESIUM 1.7 mg/dL (1.80-2.40); PHOSPHORUS 2.9 mg/dL (2.5-4.9); POTASSIUM 3.4 mmol/L (3.5-5.1)
[2019-09-10] MEDS: FUROSEMIDE 10 MG/ML 4ML VIAL IV SCH ×2 (05:09→16:24)
[2019-09-10] MEDS: INSULIN HUMULIN R 100 UNIT/ML 3ML SQ SCH ×4 (06:39→22:07)
[2019-09-10 09:13] LABS: HEPATITIS A ANTIBODY IGM Negative (Negative); HEPATITIS B CORE IGM Negative (Negative); HEPATITIS Bs ANTIGEN SCREEN P Negative (Negative)
[2019-09-10] MEDS: HEPARIN SODIUM 5000UNIT/ML 1ML VIAL IJ PRN (10:21)
[2019-09-10] MEDS: METOPROLOL TARTRATE 25 MG TAB PO SCH ×2 (11:36→19:51)
[2019-09-10] MEDS: FAMOTIDINE 20MG TAB 20 MG TAB PO SCH ×2 (11:36→19:50)
[2019-09-10] MEDS: HYDRALAZINE HCL 20 MG/ML VIAL IV PRN ×2 (11:37→16:52)
[2019-09-10] MEDS: HEPARIN SODIUM 5000UNIT/ML 1ML VIAL SQ SCH ×2 (11:45→21:39)
--- NOTE | 2019-09-10 14:46 | NUR ---
[id number] patient signed IM Letter, I faxed IM Letter to [phone] and placed in chart under consent tab.
[2019-09-10] MEDS: IRON SUCROSE COMPLEX 100 MG in SODIUM CHLORIDE 0.9% 50 ML IV SCH (15:31)
[2019-09-10] MEDS ORDERED: METOPROLOL TARTRATE 1 MG/ML 5ML VIAL IV PRN ×2 (16:00)
[2019-09-10] MEDS: AMLODIPINE BESYLATE 5 MG TAB PO SCH (17:15)
[2019-09-10] MEDS: ATORVASTATIN CALCIUM 20 MG TABLET PO SCH (19:51)
--- NOTE | 2019-09-11 | NUR ---
PT HAS INQUIRED ABOUT BEING DISCHARGED. INFORMED THAT WITH BLOOD PRESSURE BEING ELEVATED. HE MUST BE MONITORED. PT AWARE. BP HAS DECREASED THROUGHOUT THE NIGHT. NO PAIN STATED. NO DISTRESS NOTED.
[2019-09-11 03:44] VITALS: BP 160/63
[2019-09-11] MEDS: FUROSEMIDE 10 MG/ML 4ML VIAL IV SCH (05:04)
--- NOTE | 2019-09-11 05:10 | NUR ---
NEW IV 20G TO LEFT FA.
[2019-09-11] MEDS: INSULIN HUMULIN R 100 UNIT/ML 3ML SQ SCH ×2 (05:19→11:27)
[2019-09-11 08:00] VITALS: BP 160/90
[2019-09-11] MEDS: HEPARIN SODIUM 5000UNIT/ML 1ML VIAL SQ SCH (09:00)
[2019-09-11 11:00] VITALS: BP 121/66
[2019-09-11] MEDS: HEPARIN SODIUM 5000UNIT/ML 1ML VIAL IJ PRN (11:22)
[2019-09-11] MEDS: FAMOTIDINE 20MG TAB 20 MG TAB PO SCH (11:42)
[2019-09-11] MEDS: METOPROLOL TARTRATE 25 MG TAB PO SCH (11:42)
[2019-09-11] MEDS: AMLODIPINE BESYLATE 5 MG TAB PO SCH (11:42)
[2019-09-11] MEDS ORDERED: AMLO5TAB4 PO (12:00)
== END 2019-09-11 13:46 | disposition home or self-care (01) | DRG 291 ==
LOC: EDH 19:35 → INTOOBSV 22:17 → EDHIP 22:17 → OBSVTOIN 22:17 → 4CH 09-07 03:46
PROVIDERS: ADMIT Internal Medicine Pulmonary Disease; ATTEND Internal Medicine Pulmonary Disease
PROC: 30233N1 Transfusion of Nonautologous Red Blood Cells into Peripheral Vein, Percutaneous Approach (ICD-10-PCS; principal; 2019-09-06)
PROC: 5A09357 Assistance with Respiratory Ventilation, Less than 24 Consecutive Hours, Continuous Positive Airway Pressure (ICD-10-PCS; 2019-09-07)
PROC: 5A1D70Z Performance of Urinary Filtration, Intermittent, Less than 6 Hours Per Day (ICD-10-PCS; 2019-09-07)
PROC: 0W9B3ZZ Drainage of Left Pleural Cavity, Percutaneous Approach (ICD-10-PCS; 2019-09-07)
PROC: 5A1D70Z Performance of Urinary Filtration, Intermittent, Less than 6 Hours Per Day (ICD-10-PCS; 2019-09-08)
PROC: 5A1D70Z Performance of Urinary Filtration, Intermittent, Less than 6 Hours Per Day (ICD-10-PCS; 2019-09-09)
PROC: 5A1D70Z Performance of Urinary Filtration, Intermittent, Less than 6 Hours Per Day (ICD-10-PCS; 2019-09-10)
PROC: 5A1D70Z Performance of Urinary Filtration, Intermittent, Less than 6 Hours Per Day (ICD-10-PCS; 2019-09-11)
DX: I13.2 Hypertensive heart and chronic kidney disease with heart failure and with stage 5 chronic kidney disease, or end stage renal disease (principal); N18.6 End stage renal disease; I50.33 Acute on chronic diastolic (congestive) heart failure; J96.21 Acute and chronic respiratory failure with hypoxia; R78.81 Bacteremia; J91.8 Pleural effusion in other conditions classified elsewhere; E87.1 Hypo-osmolality and hyponatremia; I24.8 Other forms of acute ischemic heart disease; E87.70 Fluid overload, unspecified; E11.22 Type 2 diabetes mellitus with diabetic chronic kidney disease; D63.1 Anemia in chronic kidney disease; I25.10 Atherosclerotic heart disease of native coronary artery without angina pectoris; E11.51 Type 2 diabetes mellitus with diabetic peripheral angiopathy without gangrene; E78.5 Hyperlipidemia, unspecified; B95.2 Enterococcus as the cause of diseases classified elsewhere; R34 Anuria and oliguria; D50.9 Iron deficiency anemia, unspecified; I65.23 Occlusion and stenosis of bilateral carotid arteries; Z99.2 Dependence on renal dialysis; Z79.4 Long term (current) use of insulin; Z79.899 Other long term (current) drug therapy; Z95.1 Presence of aortocoronary bypass graft; Z89.421 Acquired absence of other right toe(s); Z91.19 Patient's noncompliance with other medical treatment and regimen; Z99.81 Dependence on supplemental oxygen
CPT/HCPCS: 36415; 36430; 36600; 71045; 71250; 80048; 80053; 80074; 81001; 82550; 82607; 82728; 82803; 82945; 82948; 83605; 83615; 83735; 83874; 83880; 83986; 84100; 84145; 84157; 84484; 85025; 85610; 85730; 86850; 86900; 86901; 86922; 87040; 87071; 87088; 87116; 87205; 87206; 88112; 88305; 89051; 90935; 93005; 93880; 93925; 94660; 94760; G0378; J0360; J1644; J1756; J1815; J1940; J2543; J3370; J3475; J7050; P9016

== ENCOUNTER → 2020-06-23 | Outpatient (CLI) | payer OTHER ==
[~2020-06-23] VITALS: Ht 162.6 cm; Wt 72.1 kg
[~2020-06-23] MED LIST changes: -AMLO2.5T4 PO; +AMLO5TAB4 PO; +REGADENOSON 0.4 MG/5 ML PF SYG IVP SCH
== END | disposition home or self-care (01) ==
LOC: SHCH 08:14
PROVIDERS: ATTEND Internal Medicine Cardiovascular Disease
DX: I25.10 Atherosclerotic heart disease of native coronary artery without angina pectoris (principal)
CPT/HCPCS: 78452; 93017; 96374; A9500 ×2

== ENCOUNTER 2020-11-28 11:30 | Inpatient (IN) | payer OTHER ==
[2020-11-28] VITALS (20 sets, daily range): BP systolic 95–159; BP diastolic 50–95
[~2020-11-28] VITALS: Ht 167.6 cm; Wt 74.0 kg
[~2020-11-28 11:30] MED LIST changes: +AEC81 PO; +AMLO-257 PO; +BENZ-70 PO; +DOXA4TAB3 PO; +ERGO400C PO; +FURO40TA5 PO; +LABE100T5 PO; +NIFE100P MC; +NIFE60TA81 PO; +OMEG100014 PO; -REGADENOSON 0.4 MG/5 ML PF SYG IVP SCH
[2020-11-28 12:48] LABS: ABG BASE EXCESS -3.8 mmol/L (-2.0-3.0); ABG HCO3 21.3 mmol/L (21.0-28.0); ABG OXYGEN SATURATION 81.3 % (95.0-99.0); ABG PCO2 39 mmHg (35-48)
[2020-11-28 13:03] LABS: BASOPHILS % (AUTO) 0.6 % (0.0-5.0); EOSINOPHILS % (AUTO) 2.4 % (0.0-8.0); HEMATOCRIT 29.5 % (42-54); LYMPHOCYTES % (AUTO) 14.3 % (21.0-51.0); MEAN CORPUSCULAR HEMOGLOBIN 32.8 pg (27.0-33.0); MEAN CORPUSCULAR HGB CONC 33.2 g/dL (32.0-36.0); MEAN CORPUSCULAR VOLUME 98.7 fL (79-99); MONOCYTES % (AUTO) 6.2 % (3.0-13.0); NEUTROPHILS % (AUTO) 76.3 % (40.0-77.0); PLATELET COUNT (AUTO) 109 K/uL (130-400); RED BLOOD CELL COUNT(AUTO) 2.99 MIL/uL (4.50-6.20); RED CELL DISTRIBUTION WIDTH 14.3 % (11.0-15.5); WHITE BLOOD COUNT (AUTO) 9.5 K/uL (4.8-10.8)
[2020-11-28 13:21] LABS: ALBUMIN 3.4 g/dL (3.5-5.0); BILIRUBIN,TOTAL 0.5 mg/dL (0.2-1.0); CRP QUANTITATIVE 0.6 mg/L (0.00-9.0); POTASSIUM 5.5 mmol/L (3.5-5.1)
[2020-11-28 13:25] LABS: B-TYPE NATRIURETIC PEPTIDE 2850 pg/mL (0-100)
[2020-11-28 13:26] LABS: CREATININE 9.4 mg/dL (0.5-1.5)
[2020-11-28 14:22] LABS: ERYTHROCYTE SEDIMENTATION RATE 6 MM/HR (0-20)
[2020-11-28] MEDS ORDERED: CLONIDINE HCL 0.1 MG TABLET PO PRN (15:00)
[2020-11-28] MEDS ORDERED: ONDANSETRON 4MG INJ IVP PRN (15:00)
[2020-11-28] MEDS ORDERED: ACETAMINOPHEN 650 MG SUPPOSITORY RC PRN (15:00)
[2020-11-28] MEDS ORDERED: HYDRALAZINE 20MG/ML VIAL IV PRN (15:00)
[2020-11-28] MEDS ORDERED: ACETAMINOPHEN 325 MG TAB PO PRN (15:00)
[2020-11-28] MEDS ORDERED: VANCOMYCIN PROTOCOL PER PHARMACY IV SCH (15:00)
[2020-11-28] MEDS ORDERED: SOLU-MEDROL 125MG VIAL IVP ONE (15:00)
[2020-11-28] MEDS ORDERED: ZOSYN 3.375GM+NS 50ML 3.38 GM in 0.9%NACL 50ML 50 ML IV SCH (15:00)
[2020-11-28] MEDS ORDERED: LACTULOSE 20 GM/30 ML UDCUP PO PRN (15:00)
[2020-11-28] MEDS ORDERED: IOHEXOL-350 75 ML VIAL IV ONE (15:36)
[2020-11-28 15:42] LABS: INR 1.09 (0.85-1.15); PROTHROMBIN TIME 11.8 SEC (9.6-11.6)
[2020-11-28 15:43] LABS: PARTIAL THROMBOPLASTIN TIME 54.3 SEC (26.3-35.5)
[2020-11-28] MEDS ORDERED: 0.9%NACL 50ML 50 ML IV ONE (15:49)
[2020-11-28] MEDS ORDERED: VANCOMYCIN KIT 1 GM/250 ML IV.KIT IV SCH (16:00)
[2020-11-28] MEDS: METOCLOPRAMIDE 5 MG TABLET PO SCH ×2 (16:05→21:30)
[2020-11-28] MEDS: INSULIN HUMULIN R 100 UNIT/ML 3ML SQ SCH ×2 (16:05→21:00)
[2020-11-28] MEDS ORDERED: LORAZEPAM 2 MG/ML 1 ML VIAL ONE (16:48)
[2020-11-28] MEDS: ZOSYN 3.375GM +NS 50ML IV SCH (16:56)
[2020-11-28] MEDS ORDERED: NOREPINEPHRINE 4MG/NS 250ML 250 ML IV SCH (17:30)
[2020-11-28] MEDS ORDERED: ASPIRIN 325MG TAB PO ONE (18:30)
[2020-11-28] MEDS ORDERED: HEPARIN 25,000 UNITS/250ML D5W 250 ML IV SCH (18:30)
[2020-11-28] MEDS ORDERED: ENOXAPARIN SODIUM 30 MG/0.3 ML SQ SCH (18:30)
[2020-11-28] MEDS ORDERED: HEPARIN 5,000 UNIT VIAL ONE ×2 (18:55→21:32)
[2020-11-28] MEDS ORDERED: LORAZEPAM 2 MG/ML 1 ML VIAL IVP ONE (19:30)
[2020-11-28 20:34] LABS: BASOPHILS % (AUTO) 0.1 % (0.0-5.0); EOSINOPHILS % (AUTO) 0.3 % (0.0-8.0); HEMATOCRIT 31.8 % (42-54); LYMPHOCYTES % (AUTO) 2.5 % (21.0-51.0); MEAN CORPUSCULAR HEMOGLOBIN 32.8 pg (27.0-33.0); MEAN CORPUSCULAR HGB CONC 33.3 g/dL (32.0-36.0); MEAN CORPUSCULAR VOLUME 98.5 fL (79-99); MONOCYTES % (AUTO) 4.3 % (3.0-13.0); NEUTROPHILS % (AUTO) 92.4 % (40.0-77.0); PLATELET COUNT (AUTO) 144 K/uL (130-400); RED BLOOD CELL COUNT(AUTO) 3.23 MIL/uL (4.50-6.20); RED CELL DISTRIBUTION WIDTH 14.2 % (11.0-15.5); WHITE BLOOD COUNT (AUTO) 15.1 K/uL (4.8-10.8)
[2020-11-28] MEDS ORDERED: HEPARIN 5,000 UNIT VIAL SQ PRN (23:00)
[2020-11-29] VITALS (10 sets, daily range): BP systolic 129–186; BP diastolic 54–92
[2020-11-29 01:32] LABS: INR 1.31 (0.85-1.15); PROTHROMBIN TIME 13.9 SEC (9.6-11.6)
[2020-11-29 02:04] LABS: PARTIAL THROMBOPLASTIN TIME > 139.0 SEC (26.3-35.5)
[2020-11-29 05:18] LABS: BASOPHILS % (AUTO) 0.1 % (0.0-5.0); HEMATOCRIT 28.4 % (42-54); LYMPHOCYTES % (AUTO) 4.2 % (21.0-51.0); MEAN CORPUSCULAR HEMOGLOBIN 33.3 pg (27.0-33.0); MEAN CORPUSCULAR HGB CONC 34.2 g/dL (32.0-36.0); MEAN CORPUSCULAR VOLUME 97.6 fL (79-99); MONOCYTES % (AUTO) 2.4 % (3.0-13.0); NEUTROPHILS % (AUTO) 92.9 % (40.0-77.0); PLATELET COUNT (AUTO) 106 K/uL (130-400); RED BLOOD CELL COUNT(AUTO) 2.91 MIL/uL (4.50-6.20); RED CELL DISTRIBUTION WIDTH 14.3 % (11.0-15.5); WHITE BLOOD COUNT (AUTO) 13.8 K/uL (4.8-10.8)
[2020-11-29] MEDS: ZOSYN 3.375GM +NS 50ML IV SCH ×2 (05:32→17:08)
[2020-11-29 05:38] LABS: MAGNESIUM 2.1 mg/dL (1.80-2.40); PHOSPHORUS 5.3 mg/dL (2.5-4.9); POTASSIUM 5.2 mmol/L (3.5-5.1)
[2020-11-29 05:51] LABS: B-TYPE NATRIURETIC PEPTIDE 1500 pg/mL (0-100)
[2020-11-29] MEDS: METOCLOPRAMIDE 5 MG TABLET PO SCH ×4 (08:54→22:14)
[2020-11-29] MEDS: INSULIN HUMULIN R 100 UNIT/ML 3ML SQ SCH ×4 (08:55→22:14)
[2020-11-29] MEDS: NITROGLYCERIN 1GM OINT 1 INCH/1GM TD SCH ×3 (08:55→17:09)
[2020-11-29] MEDS: ASPIRIN 81MG CHEW TAB PO SCH (08:55)
[2020-11-29] MEDS: PANTOPRAZOLE 40 MG TAB DR PO SCH (08:55)
[2020-11-29] MEDS ORDERED: ENOXAPARIN SODIUM 30 MG/0.3 ML SQ SCH (09:00)
[2020-11-29 09:44] LABS: INR 1.22 (0.85-1.15); PROTHROMBIN TIME 13.1 SEC (9.6-11.6)
[2020-11-29 10:15] LABS: PARTIAL THROMBOPLASTIN TIME 122.3 SEC (26.3-35.5)
[2020-11-29] MEDS: NIFEDIPINE ER 30 MG TAB PO SCH (11:24)
[2020-11-29] MEDS: LABETALOL HCL 100 MG TABLET PO SCH (11:27)
[2020-11-29 17:06] LABS: INR 1.26 (0.85-1.15); PROTHROMBIN TIME 13.4 SEC (9.6-11.6)
[2020-11-29 17:07] LABS: PARTIAL THROMBOPLASTIN TIME 61.2 SEC (26.3-35.5)
[2020-11-29] MEDS: TAMSULOSIN HCL 0.4 MG CAP.ER.24H PO SCH (21:32)
[2020-11-29 22:45] LABS: INR 1.21 (0.85-1.15)
[2020-11-29 22:46] LABS: PARTIAL THROMBOPLASTIN TIME 38.5 SEC (26.3-35.5)
[2020-11-30] VITALS (23 sets, daily range): BP systolic 99–169; BP diastolic 38–84
[2020-11-30] MEDS: NITROGLYCERIN 1GM OINT 1 INCH/1GM TD SCH ×4 (00:27→18:00)
[2020-11-30] MEDS: ZOSYN 3.375GM +NS 50ML IV SCH ×2 (04:19→16:47)
[2020-11-30] MEDS ORDERED: 0.9%NACL 50ML 50 ML IV ONE (04:21)
[2020-11-30 05:18] LABS: BASOPHILS % (AUTO) 0.2 % (0.0-5.0); EOSINOPHILS % (AUTO) 2.5 % (0.0-8.0); HEMATOCRIT 26.9 % (42-54); MEAN CORPUSCULAR HEMOGLOBIN 32.5 pg (27.0-33.0); MEAN CORPUSCULAR HGB CONC 32.3 g/dL (32.0-36.0); MEAN CORPUSCULAR VOLUME 100.4 fL (79-99); MONOCYTES % (AUTO) 6.8 % (3.0-13.0); NEUTROPHILS % (AUTO) 76.9 % (40.0-77.0); PLATELET COUNT (AUTO) 108 K/uL (130-400); RED BLOOD CELL COUNT(AUTO) 2.68 MIL/uL (4.50-6.20); RED CELL DISTRIBUTION WIDTH 14.5 % (11.0-15.5); WHITE BLOOD COUNT (AUTO) 8.7 K/uL (4.8-10.8)
[2020-11-30 05:35] LABS: INR 1.15 (0.85-1.15); PROTHROMBIN TIME 12.4 SEC (9.6-11.6)
[2020-11-30 05:36] LABS: PARTIAL THROMBOPLASTIN TIME 27.4 SEC (26.3-35.5)
[2020-11-30] MEDS: INSULIN HUMULIN R 100 UNIT/ML 3ML SQ SCH ×4 (05:54→21:00)
[2020-11-30 05:56] LABS: POTASSIUM 5.5 mmol/L (3.5-5.1)
[2020-11-30 06:05] LABS: CREATININE 9.3 mg/dL (0.5-1.5)
[2020-11-30] MEDS: METOCLOPRAMIDE 5 MG TABLET PO SCH ×4 (06:41→21:27)
[2020-11-30 07:16] LABS: HEPATITIS Bs ANTIGEN SCREEN P Negative (Negative)
[2020-11-30] MEDS: NIFEDIPINE ER 30 MG TAB PO SCH (08:46)
[2020-11-30] MEDS: LABETALOL HCL 100 MG TABLET PO SCH (08:46)
[2020-11-30] MEDS: PANTOPRAZOLE 40 MG TAB DR PO SCH (08:46)
[2020-11-30] MEDS: ASPIRIN 81MG CHEW TAB PO SCH (08:46)
[2020-11-30] MEDS: TAMSULOSIN HCL 0.4 MG CAP.ER.24H PO SCH (08:47)
[2020-11-30] MEDS ORDERED: VANCOMYCIN 1.5GM/NS 250ML IV ONE ×2 (20:00)
[2020-11-30] MEDS ORDERED: 0.9%NACL 1000ML 1,000 ML IV PRN (22:30)
[2020-12-01 00:06] VITALS: BP 153/67
[2020-12-01] MEDS: NITROGLYCERIN 1GM OINT 1 INCH/1GM TD SCH ×3 (00:29→15:16)
[2020-12-01 03:55] VITALS: BP 103/61
[2020-12-01] MEDS: ZOSYN 3.375GM +NS 50ML IV SCH (04:04)
[2020-12-01 05:17] LABS: BASOPHILS % (AUTO) 0.4 % (0.0-5.0); EOSINOPHILS % (AUTO) 4.3 % (0.0-8.0); HEMATOCRIT 25.7 % (42-54); LYMPHOCYTES % (AUTO) 14.2 % (21.0-51.0); MEAN CORPUSCULAR HEMOGLOBIN 32.3 pg (27.0-33.0); MEAN CORPUSCULAR HGB CONC 33.5 g/dL (32.0-36.0); MEAN CORPUSCULAR VOLUME 96.6 fL (79-99); MONOCYTES % (AUTO) 7.2 % (3.0-13.0); NEUTROPHILS % (AUTO) 73.6 % (40.0-77.0); PLATELET COUNT (AUTO) 108 K/uL (130-400); RED BLOOD CELL COUNT(AUTO) 2.66 MIL/uL (4.50-6.20); RED CELL DISTRIBUTION WIDTH 14.1 % (11.0-15.5); WHITE BLOOD COUNT (AUTO) 6.9 K/uL (4.8-10.8)
[2020-12-01 05:40] LABS: CREATININE 6.6 mg/dL (0.5-1.5)
[2020-12-01 05:55] LABS: POTASSIUM 4.3 mmol/L (3.5-5.1)
[2020-12-01] MEDS: METOCLOPRAMIDE 5 MG TABLET PO SCH ×2 (06:20→13:05)
[2020-12-01] MEDS: INSULIN HUMULIN R 100 UNIT/ML 3ML SQ SCH ×2 (06:31→13:07)
[2020-12-01 07:30] VITALS: BP 140/33
[2020-12-01] MEDS: ASPIRIN 81MG CHEW TAB PO SCH (08:59)
[2020-12-01] MEDS: PANTOPRAZOLE 40 MG TAB DR PO SCH (08:59)
[2020-12-01] MEDS: TAMSULOSIN HCL 0.4 MG CAP.ER.24H PO SCH (08:59)
[2020-12-01] MEDS: LABETALOL HCL 100 MG TABLET PO SCH (08:59)
[2020-12-01] MEDS: NIFEDIPINE ER 30 MG TAB PO SCH (08:59)
[2020-12-01 11:00] VITALS: BP 161/67
[2020-12-01] MEDS ORDERED: AMOX-426 PO (11:05)
[2020-12-02] MEDS ORDERED: VANCOMYCIN KIT 1 GM/250 ML IV.KIT IV SCH (14:00)
== END 2020-12-01 15:00 | disposition home or self-care (01) | DRG 291 ==
LOC: EDH 11:30 → OBSVTOIN 14:46 → EDHIP 14:46 → 3CH 23:44 → EDHIP 11-29 01:25 → 3CH 11-30 03:55
PROVIDERS: ADMIT Internal Medicine Critical Care Medicine; ATTEND Internal Medicine Critical Care Medicine
PROC: 5A1D70Z Performance of Urinary Filtration, Intermittent, Less than 6 Hours Per Day (ICD-10-PCS; principal; 2020-11-28)
PROC: 5A09357 Assistance with Respiratory Ventilation, Less than 24 Consecutive Hours, Continuous Positive Airway Pressure (ICD-10-PCS; 2020-11-28)
PROC: 5A1D70Z Performance of Urinary Filtration, Intermittent, Less than 6 Hours Per Day (ICD-10-PCS; 2020-11-30)
DX: I13.2 Hypertensive heart and chronic kidney disease with heart failure and with stage 5 chronic kidney disease, or end stage renal disease (principal); J96.01 Acute respiratory failure with hypoxia; N18.6 End stage renal disease; I50.33 Acute on chronic diastolic (congestive) heart failure; I24.8 Other forms of acute ischemic heart disease; E11.22 Type 2 diabetes mellitus with diabetic chronic kidney disease; E78.00 Pure hypercholesterolemia, unspecified; Z20.822 Contact with and (suspected) exposure to COVID-19; I95.9 Hypotension, unspecified; I25.10 Atherosclerotic heart disease of native coronary artery without angina pectoris; E11.51 Type 2 diabetes mellitus with diabetic peripheral angiopathy without gangrene; N40.0 Benign prostatic hyperplasia without lower urinary tract symptoms; E78.5 Hyperlipidemia, unspecified; D64.9 Anemia, unspecified; D69.6 Thrombocytopenia, unspecified; Z99.2 Dependence on renal dialysis; Z89.431 Acquired absence of right foot; Z95.1 Presence of aortocoronary bypass graft; Z79.899 Other long term (current) drug therapy; Z83.3 Family history of diabetes mellitus
CPT/HCPCS: 36415; 36600; 71045; 71270; 80048; 80053; 80202; 82550; 82803; 82948; 83605; 83735; 83874; 83880; 84100; 84145; 84484; 85025; 85378; 85610; 85651; 85730; 86140; 86704; 86706; 87040; 87340; 87635; 90935; 93005; 93306; 93356; 93925; 94660; G0378; J1644; J1815; J2060; J2543; J2930; J3370; J7050; Q9967

== ENCOUNTER → 2021-02-07 | Outpatient (CLI) | payer OTHER ==
[~2021-02-07] MED LIST changes: -AMLO-257 PO; -AMLO5TAB4 PO; +AMOX-426 PO; -NIFE100P MC; +ROCURONIUM 10MG/1ML SYR 10 MG/ML ML ONE
== END ==
LOC: SHCH 10:08
PROVIDERS: ATTEND Internal Medicine Cardiovascular Disease
DX: I65.23 Occlusion and stenosis of bilateral carotid arteries (principal)
CPT/HCPCS: 93880

== ENCOUNTER 2021-07-14 15:54 | Emergency (ER) | payer OTHER ==
[~2021-07-14] VITALS: Ht 162.6 cm; Wt 73.5 kg
[~2021-07-14 15:54] MED LIST changes: -ROCURONIUM 10MG/1ML SYR 10 MG/ML ML ONE
[2021-07-14 15:59] VITALS: BP 184/61
[2021-07-14 19:21] LABS: BASOPHILS % (AUTO) 0.2 % (0.0-5.0); EOSINOPHILS % (AUTO) 2.7 % (0.0-8.0); HEMATOCRIT 30.4 % (42-54); LYMPHOCYTES % (AUTO) 13.2 % (21.0-51.0); MEAN CORPUSCULAR HEMOGLOBIN 31.7 pg (27.0-33.0); MEAN CORPUSCULAR HGB CONC 34.9 g/dL (32.0-36.0); MONOCYTES % (AUTO) 5.1 % (3.0-13.0); NEUTROPHILS % (AUTO) 78.3 % (40.0-77.0); PLATELET COUNT (AUTO) 156 K/uL (130-400); RED BLOOD CELL COUNT(AUTO) 3.34 MIL/uL (4.50-6.20); RED CELL DISTRIBUTION WIDTH 14.6 % (11.0-15.5); WHITE BLOOD COUNT (AUTO) 9.2 K/uL (4.8-10.8)
[2021-07-14 19:32] LABS: ALBUMIN 1.9 g/dL (3.5-5.0)
[2021-07-14 19:38] LABS: BILIRUBIN,TOTAL 0.3 mg/dL (0.2-1.0)
[2021-07-14 19:43] LABS: INR 0.96 (0.85-1.15); PROTHROMBIN TIME 10.5 SEC (9.6-11.6)
[2021-07-14 19:45] LABS: PARTIAL THROMBOPLASTIN TIME 29.6 SEC (26.3-35.5)
[2021-07-14 20:23] LABS: APPEARANCE,URINE CLEAR (CLEAR); BILIRUBIN,URINE NEGATIVE (NEGATIVE); COLOR,URINE YELLOW (YELLOW); GLUCOSE, URINE (UA) 500 mg/dL (NEGATIVE); KETONES,URINE NEGATIVE (NEGATIVE); LEUKOCYTE ESTERASE ,URINE NEGATIVE (NEGATIVE); NITRATE,URINE NEGATIVE (NEGATIVE); OCCULT BLOOD,URINE TRACE-INTACT (NEGATIVE); PROTEIN,URINE 100 mg/dL (NEGATIVE); UROBILINOGEN,URINE 0.2 mg/dL (0.2-1.0)
[2021-07-14 20:29] LABS: RBC,URINE 0-1 /HPF (0-1)
[2021-07-14 20:30] LABS: BACTERIA,URINE None Seen /HPF (None Seen); SQUAMOUS EPITHELIAL CELL,UR Rare /HPF (0-2); WBC,URINE None Seen /HPF (0-1)
== END 2021-07-14 21:17 | disposition home or self-care (01) ==
LOC: EDH 15:54
DX: T85.611A Breakdown (mechanical) of intraperitoneal dialysis catheter, initial encounter (principal); E11.22 Type 2 diabetes mellitus with diabetic chronic kidney disease; Z98.890 Other specified postprocedural states; Z79.899 Other long term (current) drug therapy; Z79.82 Long term (current) use of aspirin; Z79.4 Long term (current) use of insulin
CPT/HCPCS: 36415; 80053; 81001; 82550; 85025; 85610; 85730; 87040; 87088

== ENCOUNTER → 2022-02-06 | Outpatient (CLI) | payer OTHER ==
[~2022-02-06] MED LIST changes: -LABE100T5 PO; +LABE100T7 PO
== END | disposition home or self-care (01) ==
LOC: RAH 06:50
PROVIDERS: ATTEND Family Medicine
DX: E11.22 Type 2 diabetes mellitus with diabetic chronic kidney disease (principal); R11.0 Nausea; R11.2 Nausea with vomiting, unspecified; E11.9 Type 2 diabetes mellitus without complications
CPT/HCPCS: 78264; A9541